=== PATIENT | female | born 1990 | race Hispanic/Latino ===

== ENCOUNTER 2016-07-10 18:00 | Emergency (ER) | payer OTHER ==
[2016-07-10 18:21] VITALS: O2SAT 99
[2016-07-10] MEDS ORDERED: HYDROcodone 7.5MG/APAP 325MG 1 EA TAB PO ONE (18:22)
[2016-07-10] MEDS ORDERED: methylPREDNISolone SODIUM SUC 125 MG/2 ML VIAL IM ONE (18:22)
[2016-07-10] MEDS ORDERED: CYCLOBENZAPRINE HCL 5 MG TAB PO ONE (18:22)
[2016-07-10] MEDS ORDERED: CYCLOBENZAPRINE HCL 10 MG TAB ONE (18:25)
--- NOTE | 2016-07-10 18:25 | ED.PDOC ---
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 The pain has just gotten progressively worse. The pain radiates to her bilateral buttocks but not down her legs. No numbness, tingling or weakness in legs. Timing/Duration: days - 4 Quality/Severity: moderate, dullness, radiation - to buttocks, sharpness Back Pain Location: lumbar spine, paraspinous muscles Back Pain Radiation: buttocks Method of Injury/Prior Injury: twisted - while lifting a patient Improving Factors: immobilization, rest Worsening Factors: movement Associated Symptoms: muscle spasms, lower back pain Allergies/Adverse Reactions: Allergies NO KNOWN ALLERGY Allergy (Verified 05/02/16 21:28) Home Medications: Ambulatory Orders Acetamin W/Cod #3 Tab [Tylenol w/CODEINE #3] 1 - 2 ea PO Q6HRS PRN #20 tab 07/10 Cyclobenzaprine HCl 5 mg PO Q8HRS PRN #15 tab 07/10/16 Review of Systems - Review of Systems Constitutional: States: no symptoms reported. Denies: diaphoresis, fever, malaise, weakness Respiratory: States: no symptoms reported Cardiology: States: no symptoms reported Gastrointestinal/Abdominal: States: no symptoms reported Genitourinary: States: no symptoms reported Musculoskeletal: States: see HPI, back pain, muscle pain, muscle stiffness Skin: States: no symptoms reported Neurological: States: other - No bowel or bladder incontinence. Denies: numbness, paresthesia, tingling, tremors, weakness Endocrine: States: no symptoms reported Hematologic/Lymphatic: States: no symptoms reported Past Medical History (General) - Patient Medical History Hx Seizures: No Hx Stroke: No Hx Dementia: No Hx Asthma: No Hx of COPD: No Hx Cardiac Disorders: No Hx Congestive Heart Failure: No Hx Pacemaker: No Hx Hypertension: No Hx Thyroid Disease: No Hx Diabetes: No Hx Gastroesophageal Reflux: No Hx Renal Disease: No Hx Cancer: No Hx of HIV: No Hx Hepatitis C: No Hx MRSA: No - Vaccination History Hx Tetanus, Diphtheria Vaccination: No Hx Influenza Vaccination: Yes Hx Pneumococcal Vaccination: No - Social History Hx Tobacco Use: No Hx Chewing Tobacco Use: No Hx Alcohol Use: No Hx Substance Use: No Hx Substance Use Treatment: No Hx Depression: No Hx Physical Abuse: No Hx Emotional Abuse: No Hx Suspected Abuse: No - Female History Patient is a Female of Child Bearing Age (10 -59 yrs old): Yes Hx Last Menstrual Period: 09/10/12 Patient : No Expected Date of Delivery:: 06/05/13 Family Medical History - Family History Mother Family History: Unknown Physical Exam - Physical Exam General Appearance: Alert, No apparent distress, Well Developed, Well Groomed, Well Hydrated, Well Nourished, Other - In obvious pain Peripheral Pulses: posterior tibialis,right: 2+, posterior tibialis,left: 2+ Back Exam: decreased range of motion, muscle spasm, vertebral tenderness Extremity Exam: no evidence of injury, normal range of motion, non-tender, no pedal edema Neurologic: no motor/sensory deficits, alert, normal mood/affect, oriented x 3, other - Negative straight leg raise Skin Exam: normal color, warm/dry Departure - Departure Clinical Impression: Lumbar strain, Muscle spasm of back Time of Disposition: 18:53 Disposition: Discharge to Home or Self Care Condition: Good Departure Forms: ED Discharge - Pt. Copy, Patient Portal Self Enrollment, Work Release Form Instructions: DI for Low Back Pain Diet: resume usual diet Activity: increase activity as tolerated Referrals: Shivani Ventura NP [Primary Care Provider] - 1-5 Days Prescriptions: Acetamin W/Cod #3 Tab [Tylenol w/CODEINE #3] 1 - 2 ea PO Q6HRS PRN #20 tab PRN Reason: Moderate To Severe Pain Cyclobenzaprine HCl 5 mg PO Q8HRS PRN #15 tab PRN Reason: Muscle Spasms Home Medications: Ambulatory Orders Acetamin W/Cod #3 Tab [Tylenol w/CODEINE #3] 1 - 2 ea PO Q6HRS PRN #20 tab 07/10 Cyclobenzaprine HCl 5 mg PO Q8HRS PRN #15 tab 07/10/16
[2016-07-10] MEDS ORDERED: ACETAMINOPHEN W/COD #3 TAB (ER Disp) PO ONE (18:57)
[2016-07-10 19:21] VITALS: BP 132/74; TEMP 98.7
== END 2016-07-10 19:16 | disposition home or self-care (01) ==
LOC: ER 18:00
DX: S39.012A Strain of muscle, fascia and tendon of lower back, initial encounter (principal); M62.830 Muscle spasm of back; X58.XXXA Exposure to other specified factors, initial encounter

== ENCOUNTER 2016-08-18 06:47 | Emergency (ER) | payer OTHER ==
[2016-08-18 07:08] VITALS: TEMP 97.8
[2016-08-18] MEDS ORDERED: ONDANSETRON INJ 4 MG/2 ML VIAL IV ONE (07:17)
[2016-08-18] MEDS ORDERED: KETOROLAC TROMETHAMINE INJ 30 MG/ML VIAL IV ONE (07:17)
[2016-08-18] MEDS ORDERED: SODIUM CHLORIDE 0.9% 1000ML 1,000 ML IVS ONE (07:17)
--- NOTE | 2016-08-18 07:26 | ED.PDOC ---
History of Present Illness - General Chief Complaint: Abdominal Pain Stated Complaint: N/V/D Time Seen by Provider: 08/18/16 07:16 Source: patient, RN notes reviewed, Vital Signs reviewed Exam Limitations: no limitations - History of Present Illness Initial Comments: Patient is a 26 y/o female who is having sharp, severe pain in her left flank x 1 day. She has had nausea and has vomited 8 times since last night. She is unable to keep anything down. The pain is worse when she is standing and when she urinates. She denies any dysuria. She has had a low-grade fever since last night. Timing/Duration: 24 hours Severity: severe Improving Factors: nothing Worsening Factors: other - standing, urinating Associated Symptoms: fever/chills, nausea/vomiting Allergies/Adverse Reactions: Allergies NO KNOWN ALLERGY Allergy (Verified 05/02/16 21:28) Home Medications: Ambulatory Orders Acetamin W/Cod #3 Tab [Tylenol w/CODEINE #3] 1 - 2 ea PO Q6HRS PRN #20 tab 07/10 Cyclobenzaprine HCl 5 mg PO Q8HRS PRN #15 tab 07/10/16 Ondansetron [Zofran Odt] 4 mg PO Q8H PRN #10 tab 08/18/16 tiZANidine [Zanaflex] 4 mg PO TID PRN #30 tab 08/18/16 Review of Systems - Review of Systems Constitutional: States: chills, fever EENTM: States: no symptoms reported Respiratory: States: no symptoms reported Cardiology: States: no symptoms reported Gastrointestinal/Abdominal: States: nausea, vomiting Genitourinary: States: no symptoms reported Musculoskeletal: States: back pain Skin: States: no symptoms reported Neurological: States: no symptoms reported Endocrine: States: no symptoms reported Hematologic/Lymphatic: States: no symptoms reported All other Systems: Reviewed and Negative Past Medical History (General) - Patient Medical History Hx Seizures: No Hx Stroke: No Hx Dementia: No Hx Asthma: No Hx of COPD: No Hx Cardiac Disorders: No Hx Congestive Heart Failure: No Hx Pacemaker: No Hx Hypertension: No Hx Thyroid Disease: No Hx Diabetes: No Hx Gastroesophageal Reflux: No Hx Renal Disease: No Hx Cancer: No Hx of HIV: No Hx Hepatitis C: No Hx MRSA: No Surgical History: other - Vaccination History Hx Tetanus, Diphtheria Vaccination: No Hx Influenza Vaccination: No Hx Pneumococcal Vaccination: No - Social History Hx Tobacco Use: No Hx Chewing Tobacco Use: No Hx Alcohol Use: No Hx Substance Use: No Hx Substance Use Treatment: No Hx Depression: No Hx Physical Abuse: No Hx Emotional Abuse: No Hx Suspected Abuse: No - Female History Hx Last Menstrual Period: 09/10/12 Patient : No Expected Date of Delivery:: 06/05/13 Family Medical History - Family History Mother Family History: Unknown Physical Exam - Physical Exam General Appearance: Alert, Obvious distress - Mild Ears, Nose, Throat: hearing grossly normal, normal ENT inspection Respiratory: lungs clear, normal breath sounds, no respiratory distress, no accessory muscle use Cardiovascular/Chest: regular rate, rhythm, no edema, no gallop, no murmur Gastrointestinal/Abdominal: normal bowel sounds, non tender, soft, no organomegaly Back Exam: normal inspection, no vertebral tenderness, CVA tenderness (L) Extremity: normal range of motion, non-tender, normal inspection, no pedal edema Neurologic: alert, normal mood/affect, oriented x 3 Skin Exam: normal color, warm/dry Progress - Results/Orders Results/Orders: 08/18/16 08/18/16 08/18/16 06:55 07:30 08:00 Temperature 97.8 F Pulse Rate [RH] 67 62 60 Respiratory 16 20 16 Rate Blood Pressure 108/67 114/70 114/70 [LEFT BRACHIAL] O2 Sat by Pulse 97 98 100 Oximetry 08/18/16 08:30 Temperature Pulse Rate [RH] 58 L Respiratory 16 Rate Blood Pressure 114/73 [LEFT BRACHIAL] O2 Sat by Pulse 100 Oximetry Laboratory Results WBC 4.5 K/mm3 (4.8-10.8) L 08/18/16 07:25 RBC 4.79 M/mm3 (4.20-5.40) 08/18/16 07:25 Hgb 11.4 gm/dL (12.0-16.0) L 08/18/16 07:25 Hct 35.7 % (36.0-47.0) L 08/18/16 07:25 MCV 74.6 fl (81.0-99.0) L 08/18/16 07:25 MCH 23.7 pg (27.0-31.0) L 08/18/16 07:25 MCHC 31.9 g/dL (33.0-37.0) L 08/18/16 07:25 RDW 16.5 % (11.5-14.5) H 08/18/16 07:25 Plt Count 175 K/mm3 (130-400) 08/18/16 07:25 MPV 9.7 fl (7.40-10.4) 08/18/16 07:25 Absolute Neuts (auto) 2.30 K/uL (1.8-6.8) 08/18/16 07:25 Absolute Lymphs (auto) 1.50 K/uL (1.0-3.4) 08/18/16 07:25 Absolute Monos (auto) 0.40 K/uL (0.2-0.8) 08/18/16 07:25 Absolute Eos (auto) 0.20 K/uL (0.0-0.4) 08/18/16 07:25 Absolute Basos (auto) 0.00 K/uL (0.0-0.1) 08/18/16 07:25 Neutrophils % 51.5 % (42.0-78.0) 08/18/16 07:25 Lymphocytes % 34.0 % (20.0-50.0) 08/18/16 07:25 Monocytes % 9.7 % (2.0-9.0) H 08/18/16 07:25 Eosinophils % 4.0 % (1.0-5.0) 08/18/16 07:25 Basophils % 0.8 % (0.0-2.0) 08/18/16 07:25 Sodium 140 mmol/L (135-145) 08/18/16 07:25 Potassium 3.7 mmol/L (3.6-5.0) 08/18/16 07:25 Chloride 107 mmol/L (101-111) 08/18/16 07:25 Carbon Dioxide 27 mmol/L (21-31) 08/18/16 07:25 Anion Gap 9.7 (12-18) L 08/18/16 07:25 BUN 16 mg/dL (7-18) 08/18/16 07:25 Creatinine 0.58 mg/dL (0.6-1.3) L 08/18/16 07:25 BUN/Creatinine Ratio 27.6 (10-20) H 08/18/16 07:25 Random Glucose 107 mg/dL (70-105) H 08/18/16 07:25 Serum Osmolality 281.1 mOsm/L (275-295) 08/18/16 07:25 Calcium 8.8 mg/dL (8.4-10.2) 08/18/16 07:25 Total Bilirubin 0.6 mg/dL (0.2-1.0) 08/18/16 07:25 AST 18 IU/L (10-42) 08/18/16 07:25 ALT 15 IU/L (10-60) 08/18/16 07:25 Alkaline Phosphatase 52 IU/L (42-121) 08/18/16 07:25 Serum Total Protein 7.7 gm/dL (6.4-8.2) 08/18/16 07:25 Albumin 4.1 g/dl (3.2-5.5) 08/18/16 07:25 Globulin 3.6 gm/dL (2.3-3.5) H 08/18/16 07:25 Albumin/Globulin Ratio 1.1 (1.1-1.9) 08/18/16 07:25 Urine Color Yellow (Yellow) 08/18/16 07:10 Urine Appearance Clear (Clear) 08/18/16 07:10 Urine pH 6.0 (4.5-7.8) 08/18/16 07:10 Ur Specific [place] 1.025 (1.005-1.030) 08/18/16 07:10 Urine Protein Negative mg/dL 08/18/16 07:10 Urine Glucose (UA) Negative mg/dL (Negative) 08/18/16 07:10 Urine Ketones Trace mg/dL (NEGATIVE) 08/18/16 07:10 Urine Blood Negative (Negative) 08/18/16 07:10 Urine Nitrite Negative 08/18/16 07:10 Urine Bilirubin Negative (NEGATIVE) 08/18/16 07:10 Urine Urobilinogen 0.2 mg/dL (0.2-1.0) 08/18/16 07:10 Ur Leukocyte Esterase Trace (Negative) H 08/18/16 07:10 Urine RBC 0 /hpf 08/18/16 07:10 Urine WBC 1-3 /hpf 08/18/16 07:10 Ur Epithelial Cells 5-10 /hpf 08/18/16 07:10 Urine Bacteria Rare 08/18/16 07:10 - EKG/XRAY/CT CT: abd/pelv - normal CT Ordered: Yes CT Interpretation Call Back: No - Report sent Departure - Departure Clinical Impression: Gastroenteritis, Flank pain Time of Disposition: 09:41 Disposition: Discharge to Home or Self Care Condition: Fair Departure Forms: ED Discharge - Pt. Copy, Patient Portal Self Enrollment Instructions: Gastroenteritis Diet Diet: bland diet Referrals: Shivani Ventura NP [Primary Care Provider] - 1-2 Weeks Prescriptions: tiZANidine [Zanaflex] 4 mg PO TID PRN #30 tab PRN Reason: Muscle Spasms Ondansetron [Zofran Odt] 4 mg PO Q8H PRN #10 tab PRN Reason: Nausea/Vomiting Home Medications: Ambulatory Orders Acetamin W/Cod #3 Tab [Tylenol w/CODEINE #3] 1 - 2 ea PO Q6HRS PRN #20 tab 07/10 Cyclobenzaprine HCl 5 mg PO Q8HRS PRN #15 tab 07/10/16 Ondansetron [Zofran Odt] 4 mg PO Q8H PRN #10 tab 08/18/16 tiZANidine [Zanaflex] 4 mg PO TID PRN #30 tab 08/18/16
[2016-08-18 09:56] VITALS: BP 117/75
[2016-08-18 09:57] VITALS: O2SAT 100
--- NOTE | 2016-08-20 01:06 | CT ---
EXAM DESCRIPTION: Abdoment/Pelvis w/o Contrast CLINICAL HISTORY: Left lateral abdominal pain COMPARISON: October 18, 2013 TECHNIQUE: Contiguous axial images of the abdomen and pelvis were obtained followed by reconstruction images. FINDINGS: The liver, spleen, pancreas and kidneys are within normal limits, except for nonobstructive stones within the left kidney. There is no hydronephrosis. Patient is status post cholecystectomy. Adrenal glands are within normal limits. Aorta is of normal caliber and tapering. There is no free fluid in the abdomen or pelvis. There is no bowel obstruction. There is no stranding of the mesenteric fat to suggest an inflammatory response. The appendix is within normal limits. There is no pericecal inflammation. 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
== END 2016-08-18 09:52 | disposition home or self-care (01) ==
LOC: ER 06:47
DX: K52.9 Noninfective gastroenteritis and colitis, unspecified (principal)
CPT/HCPCS: 36415; 74176; 80053; 81001; 85025; J1885; J2405; J7030

== ENCOUNTER 2016-10-26 20:28 | Emergency (ER) | payer OTHER ==
[2016-10-26 20:42] VITALS: BP 130/81; TEMP 98.2; O2SAT 98
--- NOTE | 2016-10-26 20:47 | ED.PDOC ---
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 She last had sex 2 days ago, however it did not hurt and the swelling only started this morning. She has a whitish discharge as well, and some dysuria. Timing/Duration: this morning Quality: mild, aching Onset Location: vaginal Radiation: none Activites at Onset: none Sexual intercourse history: single partner Allergies/Adverse Reactions: Allergies NO KNOWN ALLERGY Allergy (Verified 05/02/16 21:28) Home Medications: Ambulatory Orders Sulfamethoxazole-Trimethoprim [Bactrim Ds 800-160 mg] 1 tab PO BID #14 tab 10/26 metroNIDAZOLE [Flagyl] 500 mg PO BID #14 tab 10/26/16 Review of Systems - Review of Systems Constitutional: States: no symptoms reported EENTM: States: no symptoms reported Respiratory: States: no symptoms reported Cardiology: States: no symptoms reported Gastrointestinal/Abdominal: States: no symptoms reported Genitourinary: States: discharge, dysuria, frequency, pain Musculoskeletal: States: no symptoms reported Skin: States: no symptoms reported Neurological: States: no symptoms reported Endocrine: States: no symptoms reported Hematologic/Lymphatic: States: no symptoms reported All other Systems: Reviewed and Negative Past Medical History (General) - Patient Medical History Hx Seizures: No Hx Stroke: No Hx Dementia: No Hx Asthma: No Hx of COPD: No Hx Cardiac Disorders: No Hx Congestive Heart Failure: No Hx Pacemaker: No Hx Hypertension: No Hx Thyroid Disease: No Hx Diabetes: No Hx Gastroesophageal Reflux: No Hx Renal Disease: No Hx Cancer: No Hx of HIV: No Hx Hepatitis C: No Hx MRSA: No Surgical History: no surgical history - Vaccination History Hx Tetanus, Diphtheria Vaccination: No Hx Influenza Vaccination: No Hx Pneumococcal Vaccination: No - Social History Hx Tobacco Use: No Hx Chewing Tobacco Use: No Hx Alcohol Use: No Hx Substance Use: No Hx Substance Use Treatment: No Hx Depression: No Feels Threatened In Home Enviroment: No Feels Threatened In a Relationship: No Hx Physical Abuse: No Hx Emotional Abuse: No Hx Suspected Abuse: No - Female History Patient is a Female of Child Bearing Age (10 -59 yrs old): Yes Hx Last Menstrual Period: 10/06/16 Patient : No Expected Date of Delivery:: 06/05/13 Family Medical History - Family History Mother Family History: Unknown Physical Exam - Physical Exam General Appearance: Alert, Comfortable, No apparent distress Eyes, Ears, Nose, Throat Exam: normal ENT inspection Cardiovascular/Respiratory: no respiratory distress Gastrointestinal/Abdominal: non tender, soft, no organomegaly Rectal Exam: normal exam Pelvic Exam: no cerv. motion tender, no masses, discharge - white, fluid, lesions - small lesion on external left vulva (from stratching), tender adnexa - very mildly tender left adnexa, other - No CMT, no uterine tenderness, cervix slightly friable anteriorly Back Exam: no CVA tenderness Extremity: normal range of motion, non-tender, normal inspection, no pedal edema Neurologic: alert, normal mood/affect, oriented x 3 Skin Exam: normal color, warm/dry Lymphatic: no adenopathy Progress - Results/Orders Results/Orders: 10/26/16 20:35 Temperature 98.2 F Pulse Rate [ 76 left arm] Respiratory 18 Rate Blood Pressure 130/81 [Left Arm] O2 Sat by Pulse 98 Oximetry 10/26/16 20:45 URINE CULTURE W/COLONY COUNT Stat 10/26/16 20:55 GC CHLAMYDIA RNA,TMA Stat 10/26/16 20:59 GC CHLAMYDIA RNA,TMA Stat Laboratory Results Urine Color Yellow (Yellow) 10/26/16 20:45 Urine Appearance Clear (Clear) 10/26/16 20:45 Urine pH 5.5 (4.5-7.8) 10/26/16 20:45 Ur Specific [place] >= 1.030 (1.005-1.030) 10/26/16 20:45 Urine Protein Negative mg/dL 10/26/16 20:45 Urine Glucose (UA) Negative mg/dL (Negative) 10/26/16 20:45 Urine Ketones Negative mg/dL (NEGATIVE) 10/26/16 20:45 Urine Blood Trace-intact (Negative) H 10/26/16 20:45 Urine Nitrite Negative 10/26/16 20:45 Urine Bilirubin Negative (NEGATIVE) 10/26/16 20:45 Urine Urobilinogen 0.2 mg/dL (0.2-1.0) 10/26/16 20:45 Ur Leukocyte Esterase Small (Negative) H 10/26/16 20:45 Urine RBC 1-3 /hpf 10/26/16 20:45 Urine WBC 5-10 /hpf H 10/26/16 20:45 Ur Epithelial Cells 1-3 /hpf 10/26/16 20:45 Urine Bacteria Rare 10/26/16 20:45 Urine HCG, Qual Negative 10/26/16 20:45 Wet mount: few yeast, no clue cells, + trichamonas Departure - Departure Clinical Impression: Trichomoniasis, urogenital Urinary tract infection Qualifiers: Urinary tract infection type: site unspecified Time of Disposition: 21:41 Disposition: Discharge to Home or Self Care Condition: Fair Departure Forms: ED Discharge - Pt. Copy, Patient Portal Self Enrollment Instructions: DI for Trichomoniasis, Trichomoniasis, Urinary Tract Infection, DI for Urinary Tract Infection (UTI) Diet: resume usual diet Referrals: Shivani Ventura NP [Primary Care Provider] - 1-2 Weeks Prescriptions: metroNIDAZOLE [Flagyl] 500 mg PO BID #14 tab Sulfamethoxazole-Trimethoprim [Bactrim Ds 800-160 mg] 1 tab PO BID #14 tab Home Medications: Ambulatory Orders Sulfamethoxazole-Trimethoprim [Bactrim Ds 800-160 mg] 1 tab PO BID #14 tab 10/26 metroNIDAZOLE [Flagyl] 500 mg PO BID #14 tab 10/26/16 Additional Instructions: No sex until both partners have been treated for 7 days. Follow up with PCP in 3 months for recheck. Follow up in ED for any worsening of symptoms.
[2016-10-26] MEDS ORDERED: metroNIDAZOLE 500 MG TAB PO ONE (21:43)
[2016-10-26] MEDS ORDERED: SULFA/TRIMETH 800/160 (DS) TAB 1 EA TAB PO ONE (21:44)
== END 2016-10-26 22:01 | disposition home or self-care (01) ==
LOC: ER 20:28
DX: A59.00 Urogenital trichomoniasis, unspecified (principal)

== ENCOUNTER 2017-03-12 06:17 | Emergency (ER) | payer OTHER ==
[2017-03-12 06:32] VITALS: TEMP 97.5
[2017-03-12] MEDS ORDERED: LIDOCAINE VIS-MYLANTA 30 ML UD PO ONE (06:43)
--- NOTE | 2017-03-12 06:47 | ED.PDOC ---
History of Present Illness - General Information Source: patient, RN notes reviewed, Vital Signs reviewed Exam Limitations: no limitations - History of Present Illness Initial Comments: Patient comes in to ER with c/o epigastric abdominal pain that started last night. The pain goes through to her back. Describes the pain as pressure or tightness. + nausea and SOB. Denies similar episodes in the past. She took a Tylenol #3 w/o improvement in her pain. The pain has been constant and kept her from being able to sleep. Abdominal Pain Onset Location: epigastric Pain Radiation: back Quality: severe, steady - pressure/tightness Timing/Duration: 7-24 hours, constant Improving Factors: nothing Worsening Factors: nothing Associated Symptoms: back pain, nausea/vomiting, shortness of breath <Paloma Valadez - Last Filed: 03/12/17 06:59> <Pamela Clay - Last Filed: 03/12/17 08:28> - General Chief Complaint: Abdominal Pain Stated Complaint: epigastric pain Time Seen by Provider: 03/12/17 06:39 Review of Systems - Review of Systems Constitutional: States: no symptoms reported. Denies: chills, diaphoresis, fever, malaise EENTM: States: no symptoms reported Respiratory: States: short of breath. Denies: cough Cardiology: States: no symptoms reported. Denies: chest pain, palpitations, syncope Gastrointestinal/Abdominal: States: see HPI, abdominal pain, nausea. Denies: diarrhea, vomiting Musculoskeletal: States: see HPI, back pain Skin: States: no symptoms reported Neurological: States: no symptoms reported All other Systems: No Change from Baseline <Paloma Valadez - Last Filed: 03/12/17 06:59> Past Medical History (General) - Patient Medical History Hx Seizures: No Hx Stroke: No Hx Dementia: No Hx Asthma: No Hx of COPD: No Hx Cardiac Disorders: No Hx Congestive Heart Failure: No Hx Pacemaker: No Hx Hypertension: No Hx Thyroid Disease: No Hx Diabetes: No Hx Gastroesophageal Reflux: No Hx Renal Disease: No Hx Cancer: No Hx of HIV: No Hx Hepatitis C: No Hx MRSA: No Surgical History: cholecystectomy - Vaccination History Hx Tetanus, Diphtheria Vaccination: No Hx Influenza Vaccination: Yes Hx Pneumococcal Vaccination: No - Social History Hx Tobacco Use: No Hx Chewing Tobacco Use: No Hx Alcohol Use: No Hx Substance Use: No Hx Substance Use Treatment: No Hx Depression: No Hx Physical Abuse: No Hx Emotional Abuse: No Hx Suspected Abuse: No - Female History Patient is a Female of Child Bearing Age (10 -59 yrs old): Yes Hx Last Menstrual Period: 10/06/16 Patient : No Expected Date of Delivery:: 06/05/13 <AnthonymaynorPaloma - Last Filed: 03/12/17 06:59> Family Medical History - Family History Mother Family History: Unknown <AnthonymaynorPaloma - Last Filed: 03/12/17 06:59> Physical Exam - Physical Exam General Appearance: Alert, No apparent distress, Well Developed, Well Groomed, Well Hydrated, Well Nourished, Other - appears to be in pain Neck: supple, normal inspection Respiratory: lungs clear, normal breath sounds, no respiratory distress, no accessory muscle use Cardiovascular/Chest: regular rate, rhythm, no gallop, no JVD, no murmur Gastrointestinal/Abdominal: normal bowel sounds, soft, no organomegaly, no pulsatile mass, tenderness - epigastric tenderness w/o guarding or rebound Back Exam: normal inspection Extremity: normal inspection Neurologic: alert, normal mood/affect, oriented x 3 Skin Exam: normal color, warm/dry Comments: Vital Signs 03/12/17 06:29 Temperature 97.5 F L Pulse Rate [ 68 Right] Respiratory 16 Rate Blood Pressure 129/61 [Right Arm] O2 Sat by Pulse 99 Oximetry <RoryPaloma - Last Filed: 03/12/17 06:59> Progress - Progress Progress: 03/12/17 06:59 Patient reports some improvement with GI cocktail. Pain went from 8/10 to 6/[address] Clay @ 0700 - EKG/XRAY/CT EKG: Otilio, Sinus, no ST T wave changes Comments: Rate 59 <AnthonymaynorPaloma - Last Filed: 03/12/17 06:59> - Progress Progress: 03/12/17 07:30 PT REPORTS ONLY MINIMAL IMPROVEMENT IN PAIN AFTER GI SLIDER STILL RATING IT 6/ 10. PT CONTINUES TO HAVE NAUSEA. TORADOL, MORPHINE, ZOFRAN ORDERED. 03/12/17 08:26 PT CONTINUES TO HAVE PAIN AFTER IV PAIN MEDS. ARRANGEMENTS MADE TO TRANSFER TO [facility] FOR MRCP AND GI CONSULTATION. <Pamela Clay H - Last Filed: 03/12/17 08:28> Departure <Paloma Valadez - Last Filed: 03/12/17 06:59> - Departure Time of Disposition: 08:28 <Pamela Clay - Last Filed: 03/12/17 08:28> - Departure Clinical Impression: Elevated LFTs, Hyperbilirubinemia, Epigastric abdominal pain, Nausea and vomiting Disposition: Transfer to Hospital Condition: Fair Departure Forms: ED Discharge - Pt. Copy, Patient Portal Self Enrollment Instructions: DI for Abdominal Pain-Adult Referrals: Catalina Gottlieb BATH STEWARD/STEWARDESS [Primary Care Provider] - 1-2 Weeks Home Medications: Ambulatory Orders NK [NK] 03/12/17 Transfer to Outside Facility - Transfer Information Accepting Provider:: DR. KING Accepting Facility: [facility] Reason for Transfer: required specialist not available - WAITER/WAITRESS FORMAL <Pamela Clay - Last Filed: 03/12/17 08:28>
[2017-03-12] MEDS ORDERED: KETOROLAC TROMETHAMINE INJ 30 MG/ML VIAL IV ONE (07:18)
[2017-03-12] MEDS ORDERED: MORPHINE SULFATE INJ 10 MG/ML VIAL IV ONE (07:28)
[2017-03-12] MEDS ORDERED: ONDANSETRON INJ 4 MG/2 ML VIAL IV ONE (07:29)
[2017-03-12 09:01] VITALS: BP 125/71; O2SAT 99
== END 2017-03-12 09:21 | disposition short-term general hospital (02) ==
LOC: ER 06:17
DX: R10.13 Epigastric pain (principal); R11.2 Nausea with vomiting, unspecified; E80.6 Other disorders of bilirubin metabolism; R79.89 Other specified abnormal findings of blood chemistry
CPT/HCPCS: 36415; 80053; 82150; 83690; 85025; 93005; J1885; J2270; J2405

== ENCOUNTER 2017-07-03 01:58 | Emergency (ER) | payer SELFPAY ==
[2017-07-03] MEDS ORDERED: ALUM & MAG HYDROX-SIMETHICONE 30 ML, LIDOCAINE VISCOUS 2% 15 ML PO ONE ×2 (02:30)
[2017-07-03] MEDS ORDERED: LIDOCAINE HCL 2% (MOUTH-THROAT) 15 ML UD ONE (02:33)
[2017-07-03] MEDS ORDERED: ALUM & MAG HYDROX-SIMETHICONE 30 ML UD ONE (02:33)
--- NOTE | 2017-07-03 02:33 | ED.PDOC ---
History of Present Illness - General Chief Complaint: Chest Pain/NM Stated Complaint: chest pain Time Seen by Provider: 07/03/17 02:24 Source: patient Exam Limitations: no limitations - History of Present Illness Timing/Duration: 1-3 hours Severity/Quality: dull, pressure Location: central, other - L chest Chest Pain Radiation: no radiation Activities at Onset: none Prior Chest Pain/Cardiac Workup: non-cardiac Improving Factors: nothing Worsening Factors: other - deep breathing Nitro Today/Relief: no nitro taken today Aspirin Treatment Today: no aspirin today Associated Symptoms: shortness of breath Allergies/Adverse Reactions: Allergies NO KNOWN ALLERGY Allergy (Verified 05/02/16 21:28) Home Medications: Ambulatory Orders Pantoprazole Tablet [Protonix] 40 mg PO ACBK 14 Days #14 tab 07/03/17 Review of Systems - Review of Systems Constitutional: Denies: diaphoresis, fever EENTM: States: no symptoms reported Respiratory: States: short of breath. Denies: cough, orthopnea Cardiology: States: chest pain Gastrointestinal/Abdominal: States: nausea. Denies: abdominal pain, diarrhea, vomiting Genitourinary: Denies: dysuria, frequency Musculoskeletal: Denies: no symptoms reported Neurological: States: anxiety, numbness. Denies: paresthesia, tingling Endocrine: Denies: increased thirst, increased urine Hematologic/Lymphatic: Denies: swollen glands Past Medical History (General) - Patient Medical History Hx Seizures: No Hx Stroke: No Hx Dementia: No Hx Asthma: No Hx of COPD: No Hx Cardiac Disorders: No Hx Congestive Heart Failure: No Hx Pacemaker: No Hx Hypertension: No Hx Thyroid Disease: No Hx Diabetes: No Hx Gastroesophageal Reflux: No Hx Renal Disease: No Hx Cancer: No Hx of HIV: No Hx Hepatitis C: No Hx MRSA: No Surgical History: cholecystectomy - Vaccination History Hx Tetanus, Diphtheria Vaccination: No Hx Influenza Vaccination: Yes Hx Pneumococcal Vaccination: No - Social History Hx Tobacco Use: No Hx Chewing Tobacco Use: No Hx Alcohol Use: No Hx Substance Use: No Hx Substance Use Treatment: No Hx Depression: No Hx Physical Abuse: No Hx Emotional Abuse: No Hx Suspected Abuse: No - Female History Patient is a Female of Child Bearing Age (10 -59 yrs old): Yes Hx Last Menstrual Period: 10/06/16 Patient : No Expected Date of Delivery:: 12/13/13 Family Medical History - Family History Mother Family History: Unknown Physical Exam - Physical Exam General Appearance: Alert, Anxious Eyes, Ears, Nose, Throat Exam: PERRL/EOMI, normal ENT inspection, TMs normal Neck: full range of motion, supple, normal inspection Respiratory: chest non-tender, lungs clear, normal breath sounds, no respiratory distress Cardiovascular/Chest: normal peripheral pulses, regular rate, rhythm, no edema Peripheral Pulses: radial,right: 2+ Gastrointestinal/Abdominal: normal bowel sounds, non tender, soft, no organomegaly Extremity: normal range of motion, non-tender, normal inspection Neurologic: customer assistant II-XII nml as tested, alert, oriented x 3 Skin Exam: normal color, warm/dry Lymphatic: no adenopathy Progress - Progress Progress: 07/03/17 03:22 Feels better after GI slider - EKG/XRAY/CT EKG: Sinus, no ST T wave changes Comments: rate 88, PA 154, QRS 82 Departure - Departure Clinical Impression: Gastroesophageal reflux disease Chest pain Qualifiers: Chest pain type: precordial pain Qualified Code(s): R07.2 - Precordial pain Disposition: Discharge to Home or Self Care Condition: Fair Departure Forms: ED Discharge - Pt. Copy, Patient Portal Self Enrollment Instructions: DI for Chest Pain Referrals: Catalina Gottlieb NP [Primary Care Provider] - 1-2 Weeks Prescriptions: Pantoprazole Tablet [Protonix] 40 mg PO ACBK 14 Days #14 tab Home Medications: Ambulatory Orders Pantoprazole Tablet [Protonix] 40 mg PO ACBK 14 Days #14 tab 07/03/17
[2017-07-03 02:40] VITALS: TEMP 99.4; O2SAT 100
--- NOTE | 2017-07-03 02:57 | RAD ---
EXAM DESCRIPTION: Chest,1 View CLINICAL HISTORY: chest pain COMPARISON: 11/01/2015 FINDINGS: Single frontal view of the chest. The cardiomediastinal silhouette has normal size and contour. No consolidation, pneumothorax, or pleural effusion. No displaced rib fractures identified. Prior cholecystectomy. Leads overlie the chest. IMPRESSION: 1. No acute pulmonary process identified. Electronically signed by: Tomás Gimenez 07/03/2017 2:56 AM [facility]
[2017-07-03 03:29] VITALS: BP 148/70
== END 2017-07-03 03:29 | disposition home or self-care (01) ==
LOC: ER 01:58
DX: K21.9 Gastro-esophageal reflux disease without esophagitis (principal); R07.2 Precordial pain

== ENCOUNTER 2017-07-11 08:24 | Observation (INO) | payer SELFPAY ==
[2017-07-11] MEDS ORDERED: SODIUM CHLORIDE 0.9% (FLUSH) 10 ML SYG IV PRN ×2 (08:44→14:21)
[2017-07-11] MEDS ORDERED: ONDANSETRON INJ 4 MG/2 ML VIAL IV ONE (08:44)
[2017-07-11] MEDS ORDERED: KETOROLAC TROMETHAMINE INJ 30 MG/ML VIAL IV ONE (08:44)
[2017-07-11] MEDS ORDERED: MORPHINE SULFATE INJ 10 MG/ML VIAL IV ONE ×3 (08:45→12:05)
--- NOTE | 2017-07-11 08:54 | ED.PDOC ---
History of Present Illness - General Chief Complaint: Abdominal Pain Stated Complaint: abdominal pain Time Seen by Provider: 07/11/17 08:44 Source: patient Exam Limitations: no limitations - History of Present Illness Initial Comments: PT REPORTS ONSET OF EPIGASTRIC ABDOMINAL PAIN ABOUT 3 HOURS AGO. PT REPORTS THAT PAIN RADIATES TO THE BACK AND IS ASSOCIATED WITH NAUSEA. PT REPORTS SIMILAR EPISODE IN SEPT IN WHICH PT WAS FOUND TO HAVE AN INFECTION OF THE LIVER. Timing/Duration: 1-3 hours Severity: severe Improving Factors: nothing Worsening Factors: nothing Associated Symptoms: chest pain, nausea/vomiting, shortness of breath Allergies/Adverse Reactions: Allergies NO KNOWN ALLERGY Allergy (Verified 05/02/16 21:28) Home Medications: Ambulatory Orders Pantoprazole Tablet [Protonix] 40 mg PO ACBK 14 Days #14 tab 07/03/17 Review of Systems - Review of Systems Constitutional: Denies: chills, fever EENTM: Denies: ear pain, nose congestion Respiratory: States: short of breath. Denies: cough Cardiology: States: see HPI, chest pain. Denies: palpitations, syncope Gastrointestinal/Abdominal: States: nausea. Denies: diarrhea, vomiting Genitourinary: Denies: dysuria, frequency Musculoskeletal: Denies: joint pain, joint swelling Skin: Denies: dryness, lesions Neurological: Denies: headache, numbness Endocrine: States: no symptoms reported Hematologic/Lymphatic: States: no symptoms reported Past Medical History (General) - Patient Medical History Hx Seizures: No Hx Stroke: No Hx Dementia: No Hx Asthma: No Hx of COPD: No Hx Cardiac Disorders: No Hx Congestive Heart Failure: No Hx Pacemaker: No Hx Hypertension: No Hx Thyroid Disease: No Hx Diabetes: No Hx Gastroesophageal Reflux: No Hx Renal Disease: No Hx Cancer: No Hx of HIV: No Hx Hepatitis C: No Hx MRSA: No Surgical History: cholecystectomy, other - Vaccination History Hx Tetanus, Diphtheria Vaccination: No Hx Influenza Vaccination: Yes Hx Pneumococcal Vaccination: No - Social History Hx Tobacco Use: No Hx Chewing Tobacco Use: No Hx Alcohol Use: No Hx Substance Use: No Hx Substance Use Treatment: No Hx Depression: No Hx Physical Abuse: No Hx Emotional Abuse: No Hx Suspected Abuse: No - Female History Hx Last Menstrual Period: 10/06/16 Patient : No Expected Date of Delivery:: 06/05/13 Family Medical History - Family History Mother Family History: Unknown Physical Exam - Physical Exam General Appearance: Alert, Obvious distress, Well Developed, Well Groomed, Well Hydrated Eye Exam: bilateral normal Ears, Nose, Throat: hearing grossly normal Neck: normal inspection Respiratory: lungs clear, normal breath sounds, no respiratory distress Cardiovascular/Chest: regular rate, rhythm, no murmur Gastrointestinal/Abdominal: soft, no organomegaly, no pulsatile mass, tenderness - TO THE EPIGASTRIC REGION Extremity: normal inspection Neurologic: alert, normal mood/affect, oriented x 3 Skin Exam: normal color, warm/dry Progress - Progress Progress: 07/11/17 09:20 PT REPORTS NO IMPROVEMENT IN PAIN AFTER IV TORADOL AND MORPHINE. GI SLIDER ORDERED. 07/11/17 09:49 PT REPORTS NO IMPROVEMENT IN PAIN AFTER GI SLIDER. ADDITIONAL MORPHINE ORDERED. - Results/Orders Results/Orders: Laboratory Tests 07/11/17 07/11/17 07/11/17 08:53 08:53 08:53 WBC 5.7 RBC 4.89 Hgb 10.9 L Hct 34.1 L MCV 69.8 L MCH 22.2 L MCHC 31.9 L RDW 16.4 H Plt Count 219 MPV 9.6 Absolute Neuts (auto) 2.20 Absolute Lymphs (auto) 2.70 Absolute Monos (auto) 0.50 Absolute Eos (auto) 0.30 Absolute Basos (auto) 0.10 Neutrophils % 38.4 L Lymphocytes % 46.5 Monocytes % 8.5 Eosinophils % 5.2 H Basophils % 1.4 Sodium 137 Potassium 3.5 L Chloride 102 Carbon Dioxide 26 Anion Gap 12.5 BUN 10 Creatinine 0.52 L BUN/Creatinine Ratio 19.2 Random Glucose 101 Serum Osmolality 273.0 L Calcium 9.4 Total Bilirubin 0.4 Direct Bilirubin < 0.1 Indirect Bilirubin 0.3 AST 20 ALT 14 Alkaline Phosphatase 60 Serum Total Protein 7.6 Albumin 4.3 Lipase 80 H Serum HCG, Qual 07/11/17 08:53 WBC RBC Hgb Hct MCV MCH MCHC RDW Plt Count MPV Absolute Neuts (auto) Absolute Lymphs (auto) Absolute Monos (auto) Absolute Eos (auto) Absolute Basos (auto) Neutrophils % Lymphocytes % Monocytes % Eosinophils % Basophils % Sodium Potassium Chloride Carbon Dioxide Anion Gap BUN Creatinine BUN/Creatinine Ratio Random Glucose Serum Osmolality Calcium Total Bilirubin Direct Bilirubin Indirect Bilirubin AST ALT Alkaline Phosphatase Serum Total Protein Albumin Lipase Serum HCG, Qual Negative - EKG/XRAY/CT EKG: Otilio - @53BPM, WITH SINUS ARRHYTHMIA, NL INTERVALS, NL AXIS, Sinus, no ST T wave changes, Unchanged from - 07/03/17 Departure - Departure Clinical Impression: Pancreatitis Qualifiers: Chronicity: acute Pancreatitis type: other Acute pancreatitis complication: unspecified Qualified Code(s): K85.80 - Other acute pancreatitis without necrosis or infection Time of Disposition: 09:53 Disposition: Admit Patient Condition: Fair Departure Forms: ED Discharge - Pt. Copy, Patient Portal Self Enrollment Instructions: DI for Abdominal Pain-Adult Referrals: Catalina Gottlieb, QUALIFICATION ENGINEER [Primary Care Provider] - 1-2 Weeks Home Medications: Ambulatory Orders Pantoprazole Tablet [Protonix] 40 mg PO ACBK 14 Days #14 tab 07/03/17 Decision To Admit - Decistion To Admit Decision to Admit Reason: Admit from ER Decision to Admit Date: 07/11/17 - CASE DISCUSSED WITH DINA FAJARDO WHO AGREES TO ADMIT Decision to Admit Time: 09:53
[2017-07-11] MEDS ORDERED: ALUM & MAG HYDROX-SIMETHICONE 30 ML, LIDOCAINE VISCOUS 2% 15 ML PO ONE ×2 (09:25)
[2017-07-11] MEDS ORDERED: ALUM & MAG HYDROX-SIMETHICONE 30 ML UD ONE (09:27)
[2017-07-11] MEDS ORDERED: LIDOCAINE HCL 2% (MOUTH-THROAT) 15 ML UD ONE (09:27)
[2017-07-11] MEDS ORDERED: SODIUM CHLORIDE 0.9% 1000ML 1,000 ML IVS ONE (10:01)
--- NOTE | 2017-07-11 10:51 | CT ---
EXAM DESCRIPTION: Abdomen/Pelvis w/Contrast: CT. CLINICAL HISTORY: EPIGASTRIC ABDOMINAL PAIN, PANCREATITIS COMPARISON: None. TECHNIQUE: Spiral-axial scans at 5.0 mm intervals through the abdomen and pelvis, after nonionic IV contrast. No oral contrast. Coronal and sagittal 2.0 mm reconstructions. No adverse reactions. Total Exam DLP: 494.51 mGy-cm. This exam was performed according to our departmental dose-optimization program which includes automated exposure control, adjustment of the mA and/or kV according to patient size and/or use of iterative reconstruction technique; to reduce radiation dose to as low as reasonably achievable (ALARA). FINDINGS: Lung bases and pleura: Negative. Liver, Stomach, Spleen, Adrenal Glands: Mild intrahepatic biliary dilatation. No focal liver lesions. Craniocaudal dimension of the right lobe 18 cm. Stomach and other solid organs are negative. Pancreas, Gallbladder, Ducts: Surgical clips in the gallbladder fossa with no fluid. Interval dilation common bile duct. Pancreas unremarkable. Kidneys and Ureters: 5.7 mm radiodense stone in the superior collecting system of the left kidney and a 2.3 mm stone in the inferior collecting system. No hydronephrosis or perinephric fluid. Right kidney is unremarkable. No radiodense stones or hydroureter bilaterally. Pelvic Organs: No radiodense stones in the urinary bladder. Uterus normal position endometrium 1.7 cm. Bilateral ovaries abutting the uterus. No fluid in the cul-de-sac. Air in the vagina. Mesentery: No free air or free fluid. No stranding or fascial thickening. Aorta: Unremarkable. Small Bowel: Gas and fluid in the small bowel normal caliber. Terminal Ileum/Cecum: Radiodense material in the TI which is normal caliber and also in the cecum which is minimally distended with gas and fecal matter. Normal caliber of the appendix containing gas. Normal density of the surrounding fat. Colon: Fecal matter mostly proximal. Gas and fecal material in the sigmoid colon which is markedly redundant extending into the anterior mid abdomen. No complications. Spine and Bony Pelvis: Unremarkable. Abdominal Wall/Back Soft Tissues: Negative. IMPRESSION: 1. 2 radiodense stones in the left renal collecting system but no hydronephrosis. 5.7 mm stone in the upper collecting system which is at risk to enter the left ureter due to gravity. Consider urology consult. Bilateral ureters and right kidney unremarkable. 2. No bowel obstruction or mucosal thickening. No free air or free fluid. 3. Borderline hepatomegaly with normal size of the spleen. No fluid in the gallbladder fossa. Dilation of intrahepatic and extra hepatic ducts is unremarkable in light of cholecystectomy. 4. Uterus and ovaries in normal position. No fluid in the cul-de-sac. Electronically signed by: Cj Rosenthal MD 07/11/2017 10:50 AM [facility]
--- NOTE | 2017-07-11 11:34 | HP ---
SUPERVISING PHYSICIAN: Corby Mcintosh M.D. CHIEF COMPLAINT: Epigastric abdominal pain. HISTORY OF PRESENT ILLNESS: This is a 27 year-old female patient who woke up this morning with reports of severe epigastric abdominal pain. Sometimes the pain radiated to the left and sometimes it radiated to the right around to the back. After the abdominal pain did not subside she came to the Emergency Room. She also had some nausea but she vomited times 4 in the Emergency Room. In February of last year she had very similar symptoms and she was sent to [facility] with a liver infection. She also had it several years ago after the of her fourth child and she had her gallbladder taken out. In the Emergency Room, her CBC was basically within normal limits except her hemoglobin except her hemoglobin was slightly low at 10.9 and hematocrit 34.1. Sodium 137 with potassium 3.5, chloride 102, carbon dioxide 28, BUN 10, creatinine 0.52. Liver enzymes were basically within normal limits. Lipase was slightly elevated at 80. She had a negative urinalysis. CT of the abdomen and pelvis per radiology interpretation showed: 1. Two radiodense stones in the left renal collecting system but no hydronephrosis, 5.7 mm stone in the upper collecting system which is at risk to enter the left ureter due to gravity. Consider Urology consult, bilateral ureters and right kidney are unremarkable. 2. No bowel obstruction or mucosal thickening. No free air or free fluid. 3. Borderline hepatomegaly with size of the spleen. No fluid in the gallbladder fossa. Dilation of intrahepatic and extrahepatic ducts is unremarkable in light of cholecystectomy. 4. Uterus and ovaries in normal position. No fluid in the cul-de-sac. I called Dr. Rosenthal, radiologist, and specifically asked if there were any problems with the pancreas. He said he did not see any signs per CT of any pancreatitis. The CT and the findings also showed gas and fecal matter in the proximal colon as well as the sigmoid colon and extended into the anterior and mid abdomen. I was called for admission to the hospital. PAST MEDICAL HISTORY: 1. Abdominal pain in the past with a liver infection that required transport to [facility]. 2. Cholecystectomy after her fourth child several years ago. PAST SURGICAL HISTORY: 1. Gallbladder approximately 4 years ago. 2. Hernia repair at age 8. OUTPATIENT MEDICATIONS: None. ALLERGIES: NO KNOWN DRUG ALLERGIES. FAMILY HISTORY: Unremarkable. SOCIAL HISTORY: She is . She has 4 children. She works at [employer]. She lives in [place]. REVIEW OF SYSTEMS: GENERAL: Negative for fever, fatigue or weight changes. HEENT: Negative for ear pain, vision changes, sinus symptoms or sore throat. RESPIRATORY: Negative for coughing, wheezing, shortness of breath. CARDIAC: Negative for chest pain, palpitations or tachycardia. GASTROINTESTINAL: As per History of Present Illness. GENITOURINARY: Negative for hematuria, dysuria, polyuria. NEUROLOGIC: Negative for dizziness, headaches or seizures. PHYSICAL EXAMINATION: VITAL SIGNS: Temperature 99, heart rate 65, blood pressure 119/68, respiratory rate 16, O2 sat is 97% on room air. GENERAL: This is a 27 year-old female patient who is lying in her hospital bed. She is in no acute distress. HEENT: Normocephalic and atraumatic. Pupils are equal and reactive. Oropharynx is clear. Oral mucous membranes are moist. NECK: Supple without mass. RESPIRATORY: Clear to auscultation bilaterally. CHEST: There is equal rise and fall of the chest with inspiration and expiration. CARDIOVASCULAR: Regular rate and rhythm. GASTROINTESTINAL: Abdomen is soft, nondistended. She has very mild tenderness in the epigastric region. Otherwise is non-tender. There is no rebound tenderness. There is no guarding. Bowel sounds are positive. EXTREMITIES: No cyanosis, clubbing or edema. NEUROLOGIC: She is awake, alert and oriented times three. LABORATORY: Labs and films are as per the history of present illness. ASSESSMENT: 1. Epigastric abdominal pain with a history of a liver infection. 2. Constipation. 3. Nonobstructing kidney stones that will need a urology consultation at some point. PLAN: We will place the patient in Observation. I will give her a soap suds enema as well as some GoLYTELY. We will try to get the constipation improved and I will also send her home on some MiraLAX. I will recheck her labs in the morning as well as do an abdominal x-ray. She sees Patience Donaldson at [facility] and I will have her followup with her. She has seen Dr. Molina in the past for her GI issues and we will also need a referral to urology for the kidney stones. We will continue to monitor the patient closely and follow as needed. Dr. Mcintosh is the collaborating physician available for consultation. #[id number] [facility]
[2017-07-11] MEDS ORDERED: PROMETHAZINE HCL INJ 12.5 MG in SODIUM CHLORIDE 0.9% 50ML 50 ML IVPB ONE (12:54)
[2017-07-11] MEDS ORDERED: PROMETHAZINE HCL INJ 25 MG/ML VIAL ONE (12:56)
[2017-07-11] MEDS ORDERED: SODIUM CHLORIDE 0.9% 50ML 50 ML ONE (12:56)
[2017-07-11] MEDS ORDERED: ONDANSETRON INJ 4 MG/2 ML VIAL IV PRN (14:21)
[2017-07-11] MEDS ORDERED: IV SET AND CAP CHANGE INJ INJ SCH (14:30)
[2017-07-11] MEDS ORDERED: PEG-ELECTROLYTE 4,000 ML BTTL PO ONE (14:36)
[2017-07-11] MEDS: KCL 20MEQ/D5 1/2NS 1,000 ML IVS PRN ×2 (14:43→22:26)
[2017-07-11] MEDS ORDERED: MAGNESIUM HYDROXIDE 30 ML UD PO ONE (21:37)
[2017-07-11] MEDS ORDERED: BISACODYL SUPPOSITORY 10 MG PR ONE (21:37)
[2017-07-12] MEDS: KCL 20MEQ/D5 1/2NS 1,000 ML IVS PRN (06:08)
--- NOTE | 2017-07-12 07:10 | RAD ---
EXAM DESCRIPTION: Abdomen Flat Upright CLINICAL HISTORY: constipation and abdominal pain COMPARISON: July 11, 2017. FINDINGS: 2 views of the abdomen pelvis. Bowel gas pattern is normal in appearance. Normal amount of formed stool noted throughout the colon. No free intraperitoneal gas is demonstrated. Central left-sided nephrolithiasis is again seen. Right upper quadrant surgical clips/cholecystectomy clips. Prominent right lobe of the liver likely a Gerardo's lobe-normal variant. Osseous structures maintained. Lung bases clear. IMPRESSION: No radiographic evidence for acute abdominal or pelvic disease. Left-sided nephrolithiasis. Electronically signed by: Mj Villa MD 07/12/2017 7:09 AM [employer]
[2017-07-12 10:17] VITALS: BP 100/59; TEMP 98.1; O2SAT 97
--- NOTE | 2017-07-12 10:27 | DS ---
SUPERVISING PHYSICIAN: Corby Mcintosh MD DISCHARGE DIAGNOSIS: 1. Epigastric abdominal pain with a history of a liver infection. 2. Constipation. 3. Nonobstructing kidney stones that will need a urology consultation at some point. HISTORY OF PRESENT ILLNESS: This is a 27-year-old female patient who woke up on the day of admission in severe epigastric abdominal pain. Sometimes the pain radiated to the left and sometimes it radiated to the right around to the back. When the abdominal pain did not subside, she came to the Emergency Room. She had not had any vomiting prior to her admission to the Emergency Room, but in the Emergency Room, she vomited times 4. In February of last year, she was transferred to [facility] with some type of liver infection. Also about four years ago after the of her fourth child, she had her gallbladder taken out. CBC was basically within normal limits. Sodium 137 with potassium 3.5, chloride 102, carbon dioxide 28, BUN 10, creatinine 0.52. Liver enzymes were within normal limits. Lipase was slightly elevated at 80. She had a negative urinalysis. CT of the abdomen and pelvis per radiology interpretation showed: 1. Two radiodense stones in the left renal collecting system but no hydronephrosis, 5.7 mm stone in the upper collecting system which is at risk to enter the left ureter due to gravity. Consider Urology consult, bilateral ureters and kidneys are unremarkable. 2. No bowel obstruction or mucosal thickening. No free air or free fluid. 3. Borderline hepatomegaly with size of the spleen. No fluid in the gallbladder fossa. Dilation of intrahepatic and extrahepatic ducts is unremarkable in light of cholecystectomy. 4. Uterus and ovaries in normal position. No fluid in the cul-de-sac. Initially, it was thought that she had pancreatitis, but after obtaining the CT results, she was placed in observation in the hospital for constipation and abdominal pain. HOSPITAL COURSE: The patient was given some GoLYTELY and a soapsuds enema. She was only able to tolerate half of the GoLYTELY and only have of the soapsuds enema. She became very nauseated and required Zofran. She also could not hold any of the enema contents, so that was discontinued and she was given a Dulcolax suppository and Milk of Magnesia. She has had two generous stools and feels much better this morning. There are no complaints of abdominal pain, nausea or vomiting. She will be discharged home today. DISCHARGE PLAN: The patient will be discharged home today in stable condition. She is to resume her activity as tolerated and to resume her previous diet except she has been advised to increase her fiber in her diet including adding fruits and vegetables. She has a followup with Ctaalina Gottlieb NP, at [facility] on 07/19/17 at 9:30 AM. She has seen Dr. Molina in the past for her GI issues and it may benefit her to have a followup with him. As per the CT results, she will need a urology consult. I have prescribed her MiraLAX 17 grams daily. She is to return to the hospital or to followup with Catalina Gottlieb for any further problems or complications. DISCHARGE MEDICATIONS: 1. Pantoprazole. 2. MiraLAX. Dr. Mcintosh is the collaborating physician and available for consultation. #[id number] [facility]
== END 2017-07-12 10:50 | disposition home or self-care (01) ==
LOC: ER 08:24 → MS 11:33 → INTOOBSV 11:33
PROVIDERS: ADMIT Nurse Practitioner Acute Care; ATTEND Nurse Practitioner Acute Care
DX: R10.13 Epigastric pain (principal); K59.00 Constipation, unspecified; N20.0 Calculus of kidney; R11.2 Nausea with vomiting, unspecified; Z90.49 Acquired absence of other specified parts of digestive tract
CPT/HCPCS: 36415 ×3; 74019; 74177; 80048 ×2; 80076; 81001; 83690; 84703; 85025 ×2; 94760 ×3; 96361 ×2; 96365; 96375; 96376 ×2; 99284; A4216; G0378; J1885; J2270 ×3; J2405 ×2; J2550; J7030

== ENCOUNTER 2018-01-17 03:22 | Emergency (ER) | payer SELFPAY ==
[2018-01-17 03:39] VITALS: BP 126/88; TEMP 97.6; O2SAT 18
--- NOTE | 2018-01-17 03:50 | ED.PDOC ---
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 Timing/Duration: days - 3 1/2 days Quality/Severity: moderate, dullness Back Pain Location: T-spine, lumbar spine Back Pain Radiation: other - NONE Method of Injury/Prior Injury: other - lifting Improving Factors: rest Worsening Factors: movement Associated Symptoms: other - NONE Allergies/Adverse Reactions: Allergies NO KNOWN ALLERGY Allergy (Verified 01/17/18 03:30) Home Medications: Ambulatory Orders Baclofen 20 mg PO BID #30 tab 01/17/18 Diclofenac Sodium [Diclofenac Sodium Dr] 75 mg PO BID #30 tab 01/17/18 Review of Systems - Review of Systems Constitutional: States: no symptoms reported EENTM: States: no symptoms reported Respiratory: States: no symptoms reported Cardiology: States: no symptoms reported Gastrointestinal/Abdominal: States: no symptoms reported Genitourinary: States: no symptoms reported Musculoskeletal: States: see HPI Skin: States: no symptoms reported Neurological: States: no symptoms reported Past Medical History (General) - Patient Medical History Hx Seizures: No Hx Stroke: No Hx Dementia: No Hx Asthma: No Hx of COPD: No Hx Cardiac Disorders: No Hx Congestive Heart Failure: No Hx Pacemaker: No Hx Hypertension: No Hx Thyroid Disease: No Hx Diabetes: No Hx Gastroesophageal Reflux: No Hx Renal Disease: No Hx Cancer: No Hx of HIV: No Hx Hepatitis C: No Hx MRSA: No Surgical History: cholecystectomy, other - BTL - Vaccination History Hx Tetanus, Diphtheria Vaccination: No Hx Influenza Vaccination: Yes Hx Pneumococcal Vaccination: No - Social History Hx Tobacco Use: No Hx Chewing Tobacco Use: No Hx Alcohol Use: Yes - occ Hx Substance Use: No Hx Substance Use Treatment: No Hx Depression: No Hx Physical Abuse: No Hx Emotional Abuse: No Hx Suspected Abuse: No - Female History Hx Last Menstrual Period: 12/05/17 Patient : No Family Medical History - Family History Mother Family History: Unknown Physical Exam - Physical Exam General Appearance: Alert, Comfortable, No apparent distress Eyes, Ears, Nose, Throat Exam: normal ENT inspection Neck Exam: non-tender, full range of motion, normal inspection Cardiovascular/Respiratory: regular rate, rhythm, no M/R/G, normal peripheral pulses Peripheral Pulses: radial,right: 2+, radial,left: 2+ Gastrointestinal/Abdominal: normal bowel sounds, non tender, soft Back Exam: normal inspection, no CVA tenderness, no vertebral tenderness, decreased range of motion - due to muscle spasm, muscle spasm - from lower thoracic spine to lumbar spine Extremity Exam: no evidence of injury, normal range of motion, non-tender Neurologic: no motor/sensory deficits, alert, oriented x 3 Skin Exam: normal color, warm/dry Progress - Progress Progress: 01/17/18 03:54 Vital Signs - 8 hr 01/17/18 03:31 Temperature 97.6 F Pulse Rate [ 56 L left] Respiratory 18 Rate Blood Pressure 126/88 [left] O2 Sat by Pulse 18 L Oximetry 01/17/18 03:57 She was given 2 IM injections:Toradol-30mg ;Norflex-60 mg. and oral Hydrocodone w/ acetominophen 5 mg. po Departure - Departure Clinical Impression: Strain of muscle, fascia and tendon of lower back, initial encounter, Back muscle spasm Time of Disposition: 04:00 Disposition: Discharge to Home or Self Care Condition: Fair Departure Forms: ED Discharge - Pt. Copy, Patient Portal Self Enrollment Instructions: Muscle Strain, Lumbar Muscle Strain (DC), Lumbar Muscle Strain, Muscle Strain (DC) Referrals: Catalina Gottlieb NP [Primary Care Provider] - 1-2 Weeks Prescriptions: Baclofen 20 mg PO BID #30 tab Diclofenac Sodium [Diclofenac Sodium Dr] 75 mg PO BID #30 tab Home Medications: Ambulatory Orders Baclofen 20 mg PO BID #30 tab 01/17/18 Diclofenac Sodium [Diclofenac Sodium Dr] 75 mg PO BID #30 tab 01/17/18 Additional Instructions: NEED TO FOLLOW UP WITH YOU YUNI ATKINS MD 17 JANUARY 2018 call for appointment;NO HEAVY LIFTING MORE THAN 25 POUNDS UNTIL EVALUATED BY YUIN ATKINS Md.
[2018-01-17] MEDS ORDERED: HYDROcodone 5MG/APAP 325MG 1 EA TAB PO ONE (03:55)
[2018-01-17] MEDS ORDERED: ORPHENADRINE CITRATE 30 MG/ML AMP IM ONE (03:55)
[2018-01-17] MEDS ORDERED: KETOROLAC TROMETHAMINE INJ 30 MG/ML VIAL IM ONE (03:55)
== END 2018-01-17 04:16 | disposition home or self-care (01) ==
LOC: ER 03:22
DX: S39.012A Strain of muscle, fascia and tendon of lower back, initial encounter (principal); X50.0XXA Overexertion from strenuous movement or load, initial encounter; Y92.129 Unspecified place in nursing home as the place of occurrence of the external cause; Y99.0 Civilian activity done for income or pay
CPT/HCPCS: J1885; J2360

== ENCOUNTER → 2018-04-15 | Emergency (ER) | payer SELFPAY | LOC: ER 12:35 | DX: R50.9 Fever, unspecified (principal); Z53.21 Procedure and treatment not carried out due to patient leaving prior to being seen by health care provider ==

== ENCOUNTER 2018-04-29 17:25 | Emergency (ER) | payer SELFPAY ==
[2018-04-29] MEDS ORDERED: SODIUM CHLORIDE 0.9% 1000ML 1,000 ML IVS ONE (17:50)
[2018-04-29] MEDS ORDERED: ONDANSETRON INJ 4 MG/2 ML VIAL IV ONE (17:50)
--- NOTE | 2018-04-29 17:56 | ED.PDOC ---
History of Present Illness - General Chief Complaint: Respiratory Problem Time Seen by Provider: 04/29/18 17:50 Source: patient Exam Limitations: no limitations - History of Present Illness Comments: COUGH, N/V/D. 2 DAYS, MILD YESTERDAY, WORSE TODAY. Cough Quality/Degree: moderate Improving Factors: nothing Associated Symptoms: sore throat Allergies/Adverse Reactions: Allergies NO KNOWN ALLERGY Allergy (Verified 01/17/18 03:30) Home Medications: Ambulatory Orders Baclofen 20 mg PO BID #30 tab 01/17/18 Diclofenac Sodium [Diclofenac Sodium Dr] 75 mg PO BID #30 tab 01/17/18 Albuterol Inhaler [Ventolin Hfa Inhaler] 2 puff INH Q4HR PRN #1 inh 04/29/18 Ondansetron [Zofran Odt] 4 mg PO TID PRN #6 tab 04/29/18 guaiFENesin W/CODEINE LIQ [Robitussin AC] 10 ml PO Q6HRS PRN #4 oz 04/29/18 Review of Systems - Review of Systems Constitutional: States: chills, fever - SUBJECTIVE EENTM: States: ear pain, throat pain Respiratory: States: cough, other - PROD YELLOW SPUTUM. Denies: short of breath , wheezing Cardiology: Denies: chest pain, palpitations Gastrointestinal/Abdominal: States: diarrhea, nausea, vomiting. Denies: abdominal pain Genitourinary: States: no symptoms reported Musculoskeletal: States: no symptoms reported Skin: States: other - DIAPHORESIS Neurological: States: no symptoms reported Endocrine: States: no symptoms reported Hematologic/Lymphatic: States: no symptoms reported Past Medical History (General) - Patient Medical History Hx Seizures: No Hx Stroke: No Hx Dementia: No Hx Asthma: No Hx of COPD: No Hx Cardiac Disorders: No Hx Congestive Heart Failure: No Hx Pacemaker: No Hx Hypertension: No Hx Thyroid Disease: No Hx Diabetes: No Hx Gastroesophageal Reflux: No Hx Renal Disease: No Hx Cancer: No Hx of HIV: No Hx Hepatitis C: No Hx MRSA: No - Vaccination History Hx Tetanus, Diphtheria Vaccination: No Hx Influenza Vaccination: Yes Hx Pneumococcal Vaccination: No - Social History Hx Tobacco Use: No Hx Chewing Tobacco Use: No Hx Alcohol Use: Yes - occ Hx Substance Use: No Hx Substance Use Treatment: No Hx Depression: No Hx Physical Abuse: No Hx Emotional Abuse: No Hx Suspected Abuse: No - Female History Hx Last Menstrual Period: 12/05/17 Patient : No Expected Date of Delivery:: 06/05/13 Family Medical History - Family History Mother Family History: Unknown Physical Exam - Physical Exam General Appearance: Alert, No apparent distress Eye Exam: bilateral normal ENT Exam: normal ENT inspection, hearing grossly normal, TMs normal, pharynx normal Neck: non-tender, full range of motion, supple Respiratory: lungs clear, normal breath sounds, no respiratory distress Cardiovascular/Chest: regular rate, rhythm, no murmur Gastrointestinal/Abdominal: normal bowel sounds, non tender, soft Extremity: normal range of motion, non-tender, normal inspection Neurologic: alert, normal mood/affect Skin Exam: normal color, other - WARM, SLIGHTLY DAMP Lymphatic: no adenopathy Departure - Departure Clinical Impression: Viral pharyngitis Acute bronchiolitis Qualifiers: Bronchiolitis organism: unspecified organism Qualified Code(s): J21.9 - Acute bronchiolitis, unspecified Vomiting Qualifiers: Vomiting type: unspecified Vomiting Intractability: non-intractable Nausea presence: with nausea Qualified Code(s): R11.2 - Nausea with vomiting, unspecified Time of Disposition: 19:27 Disposition: Discharge to Home or Self Care Condition: Good Departure Forms: ED Discharge - Pt. Copy, Patient Portal Self Enrollment Instructions: Acute Bronchitis, Nausea and Vomiting, Adult (DC), Viral Pharyngitis Referrals: Catalina Gottlieb, [facility] [Primary Care Provider] - 1-2 Weeks Prescriptions: Albuterol Inhaler [Ventolin Hfa Inhaler] 2 puff INH Q4HR PRN #1 inh PRN Reason: Shortness Of Breath guaiFENesin W/CODEINE LIQ [Robitussin AC] 10 ml PO Q6HRS PRN #4 oz PRN Reason: Cough Ondansetron [Zofran Odt] 4 mg PO TID PRN #6 tab PRN Reason: Nausea/Vomiting Home Medications: Ambulatory Orders Baclofen 20 mg PO BID #30 tab 01/17/18 Diclofenac Sodium [Diclofenac Sodium Dr] 75 mg PO BID #30 tab 01/17/18 Albuterol Inhaler [Ventolin Hfa Inhaler] 2 puff INH Q4HR PRN #1 inh 04/29/18 Ondansetron [Zofran Odt] 4 mg PO TID PRN #6 tab 04/29/18 guaiFENesin W/CODEINE LIQ [Kathi AC] 10 ml PO Q6HRS PRN #4 oz 04/29/18
--- NOTE | 2018-04-29 18:24 | RAD ---
EXAM DESCRIPTION: Chest,2 Views CLINICAL HISTORY: Cough, nausea and vomiting COMPARISON: Chest radiograph dated July 03, 2017 TECHNIQUE: Upright PA and lateral views of the chest FINDINGS: Cardiomediastinal silhouette and pulmonary vascularity are within normal limits. Lungs are clear without focal consolidations. Bilateral costophrenic angles are sharp. No pneumothorax. Visualized osseous structures show no destructive lesions. Redemonstration of cholecystectomy clips in the right upper abdominal quadrant. IMPRESSION: No radiographic evidence for acute cardiopulmonary process. Electronically signed by: Justin Hearn MD 04/29/2018 6:23 PM [facility]
[2018-04-29] MEDS ORDERED: DEXAMETHASONE INJ 10 MG/ML VIAL IM ONE (19:15)
[2018-04-29] MEDS ORDERED: ACETAMINOPHEN 500 MG TAB PO ONE (19:15)
[2018-04-29] MEDS ORDERED: IPRATROPIUM/ALBUTEROL 3 ML VIAL NEB ONE (19:17)
[2018-04-29 20:04] VITALS: BP 117/79; TEMP 99.6; O2SAT 98
== END 2018-04-29 19:48 | disposition home or self-care (01) ==
LOC: ER 17:25
DX: J21.9 Acute bronchiolitis, unspecified (principal); J02.9 Acute pharyngitis, unspecified; R11.2 Nausea with vomiting, unspecified
CPT/HCPCS: 36415; 71046; 80048; 85025; 87070; 87880; 94640; J1100; J2405; J7620

== ENCOUNTER 2018-08-07 17:05 | Emergency (ER) | payer OTHER ==
[2018-08-07] MEDS ORDERED: IBUPROFEN 200 MG TAB PO ONE (17:19)
[2018-08-07] MEDS ORDERED: CETIRIZINE HCL 10 MG TAB PO ONE (17:20)
--- NOTE | 2018-08-07 18:26 | ED.PDOC ---
History of Present Illness - General Chief Complaint: General Stated Complaint: headache, congestion Time Seen by Provider: 08/07/18 17:19 Source: patient Exam Limitations: no limitations - History of Present Illness Initial Comments: the patient is a 28-year-old female presenting to the emergency room secondary to flulike symptoms. She has had this for the last 30 hours including sore throat, runny nose, cough, body aches, mild headache and fever.no vomiting. Timing/Duration: 24 hours Severity: moderate Improving Factors: nothing Worsening Factors: nothing Associated Symptoms: cough, fever/chills, headaches, malaise Allergies/Adverse Reactions: Allergies NO KNOWN ALLERGY Allergy (Verified 01/17/18 03:30) Home Medications: Ambulatory Orders Baclofen 20 mg PO BID #30 tab 01/17/18 Diclofenac Sodium [Diclofenac Sodium Dr] 75 mg PO BID #30 tab 01/17/18 Albuterol Inhaler [Ventolin Hfa Inhaler] 2 puff INH Q4HR PRN #1 inh 04/29/18 Ondansetron [Zofran Odt] 4 mg PO TID PRN #6 tab 04/29/18 guaiFENesin W/CODEINE LIQ [Robitussin AC] 10 ml PO Q6HRS PRN #4 oz 04/29/18 Review of Systems - Review of Systems Constitutional: States: chills, fever, malaise EENTM: States: nose congestion, throat pain Respiratory: States: cough Cardiology: States: no symptoms reported Gastrointestinal/Abdominal: States: no symptoms reported Genitourinary: States: no symptoms reported Musculoskeletal: States: other - general myalgias Skin: States: no symptoms reported Neurological: States: headache Endocrine: States: no symptoms reported All other Systems: No Change from Baseline Past Medical History (General) - Patient Medical History Hx Seizures: No Hx Stroke: No Hx Dementia: No Hx Asthma: No Hx of COPD: No Hx Cardiac Disorders: No Hx Congestive Heart Failure: No Hx Pacemaker: No Hx Hypertension: No Hx Thyroid Disease: No Hx Diabetes: No Hx Gastroesophageal Reflux: No Hx Renal Disease: No Hx Cancer: No Hx of HIV: No Hx Hepatitis C: No Hx MRSA: No Surgical History: other - Vaccination History Hx Tetanus, Diphtheria Vaccination: No Hx Influenza Vaccination: Yes Hx Pneumococcal Vaccination: No - Social History Hx Tobacco Use: No Hx Chewing Tobacco Use: No Hx Alcohol Use: Yes - occ Hx Substance Use: No Hx Substance Use Treatment: No Hx Depression: No Hx Physical Abuse: No Hx Emotional Abuse: No Hx Suspected Abuse: No - Female History Hx Last Menstrual Period: 12/05/17 Patient : No Expected Date of Delivery:: 06/05/13 Family Medical History - Family History Mother Family History: Unknown Physical Exam - Physical Exam General Appearance: Alert, No apparent distress Eye Exam: bilateral normal Ears, Nose, Throat: hearing grossly normal, nasal congestion, pharyngeal erythema Neck: full range of motion, supple Respiratory: lungs clear, normal breath sounds, no respiratory distress, no accessory muscle use Cardiovascular/Chest: normal peripheral pulses, regular rate, rhythm, no edema Peripheral Pulses: radial,right: 2+, radial,left: 2+, dorsalis pedis,right: 2+, dorsalis pedis,left: 2+ Gastrointestinal/Abdominal: non tender, soft Back Exam: normal inspection Extremity: normal range of motion, normal inspection, no pedal edema, normal capillary refill Neurologic: design assistant II-XII nml as tested, alert, normal mood/affect, oriented x 3 Skin Exam: normal color Comments: Vital Signs - 24 hr 08/07/18 08/07/18 17:15 17:50 Temperature 99.6 F Pulse Rate [ 71 left brachial] Respiratory 20 20 Rate Blood Pressure 121/78 [left brachial] O2 Sat by Pulse 99 Oximetry Progress - Progress Progress: 08/07/18 18:25 the patient is a 28-year-old spent female presenting secondary to a viral upper respiratory tract infection. She has tested negative for the flu. She needs to keep herself well hydrated. I recommended taking Motrin 600 mg 3 times daily for the next couple of days to help reduce symptoms along with Zyrtec 10 mg twice daily for the next few days as well. ER warnings were given for any significant worsening. Keep routine follow-up with primary care doctor. Symptoms will likely last 5-7 days. Departure - Departure Clinical Impression: Viral upper respiratory illness Disposition: Discharge to Home or Self Care Condition: Fair Departure Forms: ED Discharge - Pt. Copy, Patient Portal Self Enrollment Instructions: Cough, Runny Nose, and the Common Cold (DC) Diet: regular diet Activity: increase activity as tolerated Referrals: Catalina Gottlieb NP [Primary Care Provider] - 1-2 Weeks Home Medications: Ambulatory Orders Baclofen 20 mg PO BID #30 tab 01/17/18 Diclofenac Sodium [Diclofenac Sodium Dr] 75 mg PO BID #30 tab 01/17/18 Albuterol Inhaler [Ventolin Hfa Inhaler] 2 puff INH Q4HR PRN #1 inh 04/29/18 Ondansetron [Zofran Odt] 4 mg PO TID PRN #6 tab 04/29/18 guaiFENesin W/CODEINE LIQ [Robitussin AC] 10 ml PO Q6HRS PRN #4 oz 04/29/18 Additional Instructions: the patient is a 28-year-old spent female presenting secondary to a viral upper respiratory tract infection. She has tested negative for the flu. She needs to keep herself well hydrated. I recommended taking Motrin 600 mg 3 times daily for the next couple of days to help reduce symptoms along with Zyrtec 10 mg twice daily for the next few days as well. ER warnings were given for any significant worsening. Keep routine follow-up with primary care doctor. Symptoms will likely last 5-7 days.
[2018-08-07 19:01] VITALS: BP 117/71; TEMP 98.9; O2SAT 97
== END 2018-08-07 18:40 | disposition home or self-care (01) ==
LOC: ER 17:05
DX: J06.9 Acute upper respiratory infection, unspecified (principal)

== ENCOUNTER 2019-01-24 09:44 | Emergency (ER) | payer SELFPAY ==
[2019-01-24] MEDS ORDERED: ONDANSETRON INJ 4 MG/2 ML VIAL IV ONE (10:07)
[2019-01-24] MEDS ORDERED: KETOROLAC TROMETHAMINE INJ 30 MG/ML VIAL IV ONE (10:32)
--- NOTE | 2019-01-24 11:08 | ED.PDOC ---
History of Present Illness - General Chief Complaint: Abdominal Pain Stated Complaint: left side pain; vomiting Time Seen by Provider: 01/24/19 10:13 Source: patient Exam Limitations: no limitations - History of Present Illness Initial Comments: Patient presents with left flank pain since last night. Aching and sharp, non- radiating, no exacerbating nor alleviating factors, no previous episodes, associated with multiple episodes of N/V today. No diarrhea. s/p cholecystectomy and BTL. No other complaints. Timing/Duration: other - 15 hours Severity: moderate Improving Factors: nothing Worsening Factors: nothing Associated Symptoms: other - as in HPI Allergies/Adverse Reactions: Allergies NO KNOWN ALLERGY Allergy (Verified 01/17/18 03:30) Home Medications: Ambulatory Orders Ketorolac Tromethamine [Toradol Tabs] 10 mg PO Q6HRS PRN #16 tab 01/24/19 Ondansetron HCl [Zofran] 4 mg PO Q4HR PRN #12 tab 01/24/19 Review of Systems - Review of Systems Constitutional: States: no symptoms reported EENTM: States: no symptoms reported Respiratory: States: no symptoms reported Cardiology: States: no symptoms reported Gastrointestinal/Abdominal: States: see HPI Genitourinary: States: see HPI Musculoskeletal: States: no symptoms reported Skin: States: no symptoms reported Neurological: States: no symptoms reported Endocrine: States: no symptoms reported Hematologic/Lymphatic: States: no symptoms reported Past Medical History (General) - Patient Medical History Hx Seizures: No Hx Stroke: No Hx Dementia: No Hx Asthma: No Hx of COPD: No Hx Cardiac Disorders: No Hx Congestive Heart Failure: No Hx Pacemaker: No Hx Hypertension: No Hx Thyroid Disease: No Hx Diabetes: No Hx Gastroesophageal Reflux: No Hx Renal Disease: No Hx Cancer: No Hx of HIV: No Hx Hepatitis C: No Hx MRSA: No Surgical History: cholecystectomy, other - Vaccination History Hx Tetanus, Diphtheria Vaccination: No Hx Influenza Vaccination: Yes Hx Pneumococcal Vaccination: No - Social History Hx Tobacco Use: No Hx Chewing Tobacco Use: No Hx Alcohol Use: Yes - occ Hx Substance Use: No Hx Substance Use Treatment: No Hx Depression: No Hx Physical Abuse: No Hx Emotional Abuse: No Hx Suspected Abuse: No - Female History Hx Last Menstrual Period: 12/05/17 Patient : No Expected Date of Delivery:: 06/05/13 Family Medical History - Family History Mother Family History: Unknown Physical Exam - Physical Exam General Appearance: Alert, Obvious distress - moderate distress Eye Exam: bilateral normal Ears, Nose, Throat: normal ENT inspection Neck: non-tender, full range of motion, supple Respiratory: lungs clear, normal breath sounds Cardiovascular/Chest: normal peripheral pulses, regular rate, rhythm Gastrointestinal/Abdominal: normal bowel sounds, soft, other - Mild TTP of left flank, abdomen NTTP, no guarding. lap hannah scar visible Back Exam: normal inspection, no CVA tenderness Extremity: normal range of motion, non-tender, normal inspection Neurologic: no motor/sensory deficits, alert, normal mood/affect, oriented x 3 Skin Exam: normal color Lymphatic: no adenopathy Progress - Progress Progress: 01/24/19 11:42 Laboratory Tests 01/24/19 01/24/19 01/24/19 09:55 09:55 09:55 WBC 8.5 RBC 5.23 Hgb 11.2 L Hct 35.9 L MCV 68.6 L MCH 21.5 L MCHC 31.3 L RDW 18.1 H Plt Count 264 MPV 10.2 Absolute Neuts (auto) 5.80 Absolute Lymphs (auto) 1.80 Absolute Monos (auto) 0.70 Absolute Eos (auto) 0.20 Absolute Basos (auto) 0.10 Neutrophils % 68.0 Lymphocytes % 20.7 Monocytes % 8.5 Eosinophils % 1.8 Basophils % 1.0 Sodium Potassium Chloride Carbon Dioxide Anion Gap BUN Creatinine BUN/Creatinine Ratio Random Glucose Serum Osmolality Calcium Urine Color Yellow Urine Appearance Clear Urine pH 6.0 Ur Specific [place] >= 1.030 Urine Protein Trace Urine Glucose (UA) Negative Urine Ketones Negative Urine Blood Moderate H Urine Nitrite Negative Urine Bilirubin Negative Urine Urobilinogen 0.2 Ur Leukocyte Esterase Negative Urine RBC 10-20 H Urine WBC 0 Ur Epithelial Cells 20-30 Urine Bacteria Rare Urine HCG, Qual Negative 01/24/19 09:55 WBC RBC Hgb Hct MCV MCH MCHC RDW Plt Count MPV Absolute Neuts (auto) Absolute Lymphs (auto) Absolute Monos (auto) Absolute Eos (auto) Absolute Basos (auto) Neutrophils % Lymphocytes % Monocytes % Eosinophils % Basophils % Sodium 141 Potassium 3.6 Chloride 106 Carbon Dioxide 25 Anion Gap 13.6 BUN 16 Creatinine 0.91 BUN/Creatinine Ratio 17.6 Random Glucose 108 H Serum Osmolality 283.0 Calcium 9.2 Urine Color Urine Appearance Urine pH Ur Specific [place] Urine Protein Urine Glucose (UA) Urine Ketones Urine Blood Urine Nitrite Urine Bilirubin Urine Urobilinogen Ur Leukocyte Esterase Urine RBC Urine WBC Ur Epithelial Cells Urine Bacteria Urine HCG, Qual CT ab/pelvis showed 4 mm x 5 mm left ureteral stone. Patient received Toradol 30 mg IV x one shortly after arrival. HCG negative. Care instructions given. E.R. warnings given. Questions were elicited and answered. Patient voiced understanding and agreement with the plan. Departure - Departure Clinical Impression: Ureteric stone Disposition: Discharge to Home or Self Care Condition: Good Departure Forms: ED Discharge - Pt. Copy, Patient Portal Self Enrollment Instructions: DI for Abdominal Pain-Adult Diet: resume usual diet, other - increase oral fluids Activity: increase activity as tolerated Referrals: Catalina Gottlieb FIELD GEOLOGIST [Primary Care Provider] - 1-2 Weeks Prescriptions: Ondansetron HCl [Zofran] 4 mg PO Q4HR PRN #12 tab PRN Reason: Nausea/Vomiting Ketorolac Tromethamine [Toradol Tabs] 10 mg PO Q6HRS PRN #16 tab PRN Reason: Pain Home Medications: Ambulatory Orders Ketorolac Tromethamine [Toradol Tabs] 10 mg PO Q6HRS PRN #16 tab 01/24/19 Ondansetron HCl [Zofran] 4 mg PO Q4HR PRN #12 tab 01/24/19 Additional Instructions: Drinking plenty of fluids. Take medications as prescribed. Return to the E.R. for temperature 100.4 or greater or if symptoms do not resolve in 4 days. Critical Care Note - Critical Care Note Total Time (mins): 35
[2019-01-24 11:16] VITALS: O2SAT 100
--- NOTE | 2019-01-24 11:31 | CT ---
PROCEDURE: CT Abdomen and Pelvis Without Intravenous Contrast CLINICAL INDICATION: The patient is 28 years years old, Female; left flank pain, hematuria TECHNIQUE: Axial computed tomography images of the abdomen and pelvis without intravenous contrast. Sagittal and coronal reformatted images were created and reviewed. This CT exam was performed using one or more of the following dose reduction techniques: automated exposure control, adjustment of the mA and/or kV according to patient size, and/or use of iterative reconstruction technique. COMPARISON: CT abdomen and pelvis dated 07/11/2017 FINDINGS: LUNG BASES: There is trace dependent fluid or atelectasis bilaterally. ABDOMEN: LIVER: Unremarkable. The liver is normal in size and configuration. There are no significant focal defects. There is no evidence of biliary ductal dilatation. GALLBLADDER AND BILE DUCTS: The gallbladder is absent status post cholecystectomy with surgical clips in the gallbladder fossa. PANCREAS: Unremarkable. No ductal dilatation, inflammatory changes or mass. SPLEEN: Unremarkable. No splenomegaly or focal defects. ADRENALS: Unremarkable. No mass or calcification. KIDNEYS AND URETERS: There is mild left perinephric, peripelvic and periureteric reticulation as well as mild left pelvocaliectasis and ureterectasis secondary to a 0.6 cm AP by 0.4 cm T by 0.5 cm CC obstructive calculus located in the upper to mid left ureter. There are two remaining calculi in the lower pole of the left kidney, the largest measuring up to 0.5 cm a punctate calcific density or vascular calcification is noted in the upper pole of the right kidney. There is no evidence of right hydronephrosis. There are no solid renal masses. STOMACH AND BOWEL: The stomach, small bowel and colon are unremarkable allowing for incomplete distention PELVIS: APPENDIX: The appendix is present and appears normal. BLADDER: The urinary bladder appears thick walled up to 6 mm. No evidence of cystolithiasis or discrete bladder mass. REPRODUCTIVE: The uterus and adnexa are unremarkable. ABDOMEN and PELVIS: INTRAPERITONEAL SPACE: Unremarkable. No free air or free fluid. No significant focal fluid collection. BONES/JOINTS: There is no evidence of acute fracture, osseous destruction or osteoblastic changes. SOFT TISSUES: Unremarkable. VASCULATURE: Unremarkable. No abdominal aortic aneurysm. LYMPH NODES: Unremarkable. There is no evidence of hilar, mediastinal or axillary adenopathy. IMPRESSION: 1. 0.6 cm AP by 0.4 cm T by 0.5 cm CC obstructive calculus located in the upper to mid left ureter. 2. The appearance of the bladder wall thickening, defined as greater than 3 mm in a distended bladder and greater than 5 mm when nondistended, may be caused or exaggerated by incomplete distention. However, cystitis is also suspected. Other less likely differential considerations include neurogenic bladder and detrusor muscle hypertrophy as can occur with bladder outlet obstruction or autonomic dysfunction in the appropriate clinical setting. Recommend correlation with urinalysis. Electronically signed by: Laxmi Salgado MD 01/24/2019 11:29 AM CDT
[2019-01-24 12:06] VITALS: BP 110/70; TEMP 98.5
== END 2019-01-24 12:02 | disposition home or self-care (01) ==
LOC: ER 09:44
DX: N13.2 Hydronephrosis with renal and ureteral calculous obstruction (principal); Z90.49 Acquired absence of other specified parts of digestive tract
CPT/HCPCS: 36415; 74176; 80048; 81001; 81025; 85025; J1885; J2405

== ENCOUNTER 2019-02-17 19:02 | Emergency (ER) | payer SELFPAY ==
[2019-02-17 19:20] VITALS: TEMP 98.2
[2019-02-17] MEDS ORDERED: HYDROmorphone HCL INJ 2 MG/ML VIAL IV ONE (20:01)
--- NOTE | 2019-02-17 20:43 | CT ---
Sex: Female. : 1990. Technique: Axial scans through the abdomen and pelvis without intravenous contrast including multiplanar computer reformations. Total Dose Length Product: 518. This exam was performed according to our departmental dose-optimization program, which includes automated exposure control, adjustment of the mA and/or kV according to patient size and/or use of iterative reconstruction technique. Comparison studies: January 24, 2019. Clinical history: PERSISTENT L FLANK PAIN; RECENT DX NEPHROLITHIASIS. Findings: Liver: Size: 18.7 cm. Parenchyma: No mass. Vasculature: Portal and hepatic veins: Indeterminate, noncontrast. Spleen: Normal. Gallbladder: Cholecystectomy. Bile ducts: No biliary dilatation. Pancreas: normal. Adrenal glands: Normal. Kidneys: Right kidney: Right kidney is 10.5 cm. There is a punctate stone in the upper pole of the right kidney for example series 2 image 51. There is no right ureteral dilatation. Left kidney: Left kidney is 10.4 cm. A left ureteral stent has been placed. There is slight left periureteral thickening. The previous stone seen in the proximal left ureter is no longer present. The previous stones seen in the left kidney are no longer present. There is no left perinephric fluid collection. The previous hydronephrosis is largely resolved. Bladder: Underdistended. Ureteral stent. Uterus: Position: Anteverted. Adnexa: 5.5 cm right adnexal cyst has developed in the exam interval. Intestinal Tract: Stomach and duodenum: Unremarkable Small bowel: Normal. Large bowel: Normal. Appendix: Normal. Mesentery and Omentum: Normal. Retroperitoneum: Normal. Vasculature: Aorta: Normal. Iliac arteries: Normal. Free fluid: None. Musculoskeletal: Musculature, abdominal wall and soft tissues: Unremarkable. Skeletal structures: Unremarkable. Lung bases: Clear. Impression: 1. Interval placement left ureteral stent and resolution of the previous hydronephrosis. Previously seen proximal left ureteral stone is not demonstrated now. Previous left kidney stones are not demonstrated. 2. Interval development of a 5.5 cm right ovary cyst. See management discussion below. Recommendations for f/u of anechoic simple cyst, simple cyst with single thin <3mm septation, or focal calcification in wall of cyst1: Pre-menopause: < 5 cm No f/u necessary >5cm - <7cm US f/u yearly >7cm Consider MR w/IVC or surgical evaluation Post-menopause (1 year or more since last menstrual period): <3 cm No f/u necessary >3cm - <7 cm US f/u yearly >7cm Consider MR w/IVC or surgical evaluation 1. Recommendations based upon the 2010 SRU Consensus Conference Statement on the Management of asymptomatic ovarian and adnexal cysts imaged at US. Radiology. 2009;256(3):943-54 Electronically signed by: Mohan Gupta MD 02/17/2019 8:41 PM CDT
--- NOTE | 2019-02-17 21:46 | ED.PDOC ---
History of Present Illness - General Chief Complaint: Problem Stated Complaint: Left flank pain Time Seen by Provider: 02/17/19 19:52 Source: patient Exam Limitations: no limitations - History of Present Illness Initial Comments: L FLANK PAIN. WAS IN HOSPITAL JAN 31, FOUND KIDNEY STONE AND IFXN. STENT PLACED IN L URETER AND GIVEN 7 D LEVAQUIN. SHE FINISHED THE ABX 10 D AGO. IS STILL HAVING SEVERE L FLANK PAIN, NOT ALLEVIATED BY NSAIDS AND TYLENOL. NO DYSURIA IN PELVIS BUT HAS PAIN IN L FLANK WHEN VOIDS. Severity: severe Improving Factors: nothing Worsening Factors: nothing Associated Symptoms: denies symptoms Allergies/Adverse Reactions: Allergies NO KNOWN ALLERGY Allergy (Verified 01/17/18 03:30) Home Medications: Ambulatory Orders Ketorolac Tromethamine [Toradol Tabs] 10 mg PO Q6HRS PRN #16 tab 01/24/19 Ondansetron HCl [Zofran] 4 mg PO Q4HR PRN #12 tab 01/24/19 Nitrofurantoin Monohydrate Mac [Macrobid] 100 mg PO BID #14 cap 02/17/19 Tamsulosin HCl [Flomax] 0.4 mg PO DAILY 10 Days #10 cap 02/17/19 Tramadol HCl [Ultram] 50 mg PO Q6HR PRN #15 tab 02/17/19 Review of Systems - Review of Systems Constitutional: States: no symptoms reported EENTM: States: no symptoms reported Respiratory: States: no symptoms reported Cardiology: States: no symptoms reported Gastrointestinal/Abdominal: Denies: abdominal pain, constipation, diarrhea, nausea, vomiting Genitourinary: States: pain - L FLANK. Denies: discharge, dysuria, frequency, hematuria Musculoskeletal: States: no symptoms reported Skin: States: no symptoms reported Neurological: States: no symptoms reported Endocrine: States: no symptoms reported Hematologic/Lymphatic: States: no symptoms reported All other Systems: Reviewed and Negative Past Medical History (General) - Patient Medical History Hx Seizures: No Hx Stroke: No Hx Dementia: No Hx Asthma: No Hx of COPD: No Hx Cardiac Disorders: No Hx Congestive Heart Failure: No Hx Pacemaker: No Hx Hypertension: No Hx Thyroid Disease: No Hx Diabetes: No Hx Gastroesophageal Reflux: No Hx Renal Disease: No Hx Cancer: No Hx of HIV: No Hx Hepatitis C: No Hx MRSA: No Surgical History: cholecystectomy - Vaccination History Hx Tetanus, Diphtheria Vaccination: No Hx Influenza Vaccination: Yes Hx Pneumococcal Vaccination: No - Social History Hx Tobacco Use: No Hx Chewing Tobacco Use: No Hx Alcohol Use: Yes Hx Substance Use: No Hx Substance Use Treatment: No Hx Depression: No Hx Physical Abuse: No Hx Emotional Abuse: No Hx Suspected Abuse: No - Female History Hx Last Menstrual Period: 12/05/17 Patient : No Expected Date of Delivery:: 06/05/13 - Triage Comment ED Triage Comment: Diagnosed with renal stone and uti recently Family Medical History - Family History Mother Family History: Unknown Physical Exam - Physical Exam General Appearance: Alert, Obvious distress Ears, Nose, Throat: hearing grossly normal, normal ENT inspection Neck: full range of motion, normal inspection Respiratory: no respiratory distress, no accessory muscle use Cardiovascular/Chest: normal peripheral pulses, no murmur Gastrointestinal/Abdominal: normal bowel sounds, non tender, soft, no organomegaly, no pulsatile mass Back Exam: normal inspection, no vertebral tenderness, CVA tenderness (L) Extremity: normal range of motion, normal inspection Neurologic: alert, normal mood/affect Skin Exam: normal color, warm/dry Lymphatic: no adenopathy Progress - Progress Progress: 02/17/19 21:49 HCG NEG. CMP NEG (BUN AND CR NL). CBC HGB 10.5, DECR MCV AND MCHC. UA PROTEIN, BLOOD, RBC, LEUK EST. CT = NO OBSTRUCTING STONES. NO STONES NOR HYDROURETER OF L SIDE TO EXPLAIN HER PAIN. I SUSPECT HER PAIN IS FROM THE STENT. ABX FOR UTI. SEND FOR CX SINCE STILL UTI AFTER LEVAQUIN. INSTRUCTED PT TO CALL URO ABOUT SOONER STENT REMOVAL. FLOMAX FOR POSSIBLE URETERAL RELAXATION TO HELP WITH PAIN AND ULTRAM PRN. Departure - Departure Clinical Impression: Left flank pain, History of ureter stent, Microcytic hypochromic anemia, Microscopic hematuria UTI (urinary tract infection) Qualifiers: Urinary tract infection type: acute cystitis Hematuria presence: with hematuria Qualified Code(s): N30.01 - Acute cystitis with hematuria Disposition: Discharge to Home or Self Care Condition: Good Departure Forms: ED Discharge - Pt. Copy, Patient Portal Self Enrollment Instructions: DI for Urinary Tract Infection (UTI) Diet: resume usual diet Activity: increase activity as tolerated Referrals: Catalina Gottlieb POTATO PANCAKE FRIER [Primary Care Provider] - 1-2 Weeks Prescriptions: Tramadol HCl [Ultram] 50 mg PO Q6HR PRN #15 tab PRN Reason: Pain Nitrofurantoin Monohydrate Mac [Macrobid] 100 mg PO BID #14 cap Tamsulosin HCl [Flomax] 0.4 mg PO DAILY 10 Days #10 cap Home Medications: Ambulatory Orders Ketorolac Tromethamine [Toradol Tabs] 10 mg PO Q6HRS PRN #16 tab 01/24/19 Ondansetron HCl [Zofran] 4 mg PO Q4HR PRN #12 tab 01/24/19 Nitrofurantoin Monohydrate Mac [Macrobid] 100 mg PO BID #14 cap 02/17/19 Tamsulosin HCl [Flomax] 0.4 mg PO DAILY 10 Days #10 cap 02/17/19 Tramadol HCl [Ultram] 50 mg PO Q6HR PRN #15 tab 02/17/19 Additional Instructions: As discussed, please call your urologist tomorrow and inform him of your persistent left flank pain, which is the side where the stent is. The CT in the ER did not show a stone nor dilated ureter.
[2019-02-17 22:07] VITALS: BP 119/84; O2SAT 99
== END 2019-02-17 22:18 | disposition home or self-care (01) ==
LOC: ER 19:02
DX: N30.01 Acute cystitis with hematuria (principal); R10.9 Unspecified abdominal pain; D50.9 Iron deficiency anemia, unspecified; Z96.0 Presence of urogenital implants; Z87.442 Personal history of urinary calculi; Z87.440 Personal history of urinary (tract) infections; Z90.49 Acquired absence of other specified parts of digestive tract
CPT/HCPCS: 36415; 74176; 80053; 81001; 81025; 85025; 87086; J1170

== ENCOUNTER 2020-06-25 14:10 | Emergency (ER) | payer OTHER, SELFPAY ==
[2020-06-25] MEDS ORDERED: KETOROLAC TROMETHAMINE INJ 30 MG/ML VIAL IM ONE (14:43)
[2020-06-25 14:45] VITALS: TEMP 97.9
--- NOTE | 2020-06-25 15:20 | RAD ---
EXAM: X-RAY CHEST, 2 VIEWS HISTORY: left spine chest pain after a fall.. COMPARISON: Chest x-ray from 04/29/2018. TECHNIQUE: PA and lateral views of the chest. FINDINGS: Lungs: The lungs are clear. Pleural space: No pneumothorax or pleural effusion is present. Heart: The heart is normal in size. Bones: No acute bone abnormality. IMPRESSION: No acute cardiopulmonary finding. Electronically signed by: Mj Garcia MD 06/25/2020 3:18 PM [facility]
--- NOTE | 2020-06-25 15:21 | RAD ---
EXAM: X-RAY, Chest (1 View) HISTORY: fall with left hip pain. COMPARISON: None. TECHNIQUE: AP view of the chest. FINDINGS: Lungs: The lungs are clear. Normal joint spaces of both hips. Pleural space: No pneumothorax or pleural effusion is present. Heart: The heart is normal in size. Bones: No acute bone abnormality. IMPRESSION: No acute cardiopulmonary finding. Electronically signed by: Mj Garcia MD 06/25/2020 3:19 PM [facility]
--- NOTE | 2020-06-25 16:06 | ED.PDOC ---
History of Present Illness - General Chief Complaint: Trauma Stated Complaint: fall yesterday, LUQ abdominal pain Time Seen by Provider: 06/25/20 14:38 Exam Limitations: no limitations - History of Present Illness Initial Comments: Patient is a 30-year-old female who was running outside yesterday and slipped and fell on the ice and landed on her left side. Patient woke up this morning complaining of worsening left hip pain and left lower rib cage pain. The pain is sharp and stabbing in nature. It is worse with movement or palpation. It is of slightly improved with rest. It is nonradiating. It is constant. Occurred: yesterday Severity: moderate Pain Location: chest, lower extremity Method of Injury: fall Improving Factors: nothing Worsening Factors: movement Associated Symptoms (Fall): chest pain Allergies/Adverse Reactions: Allergies NO KNOWN ALLERGY Allergy (Verified 01/17/18 03:30) Home Medications: Ambulatory Orders Ketorolac Tromethamine [Toradol Tabs] 10 mg PO Q6HRS PRN #16 tab 01/24/19 Ondansetron HCl [Zofran] 4 mg PO Q4HR PRN #12 tab 01/24/19 Nitrofurantoin Monohydrate Mac [Macrobid] 100 mg PO BID #14 cap 02/17/19 Tamsulosin HCl [Flomax] 0.4 mg PO DAILY 10 Days #10 cap 02/17/19 Tramadol HCl [Ultram] 50 mg PO Q6HR PRN #15 tab 02/17/19 Review of Systems - Review of Systems Constitutional: States: no symptoms reported, see HPI. Denies: chills, fever, malaise, weakness EENTM: States: no symptoms reported. Denies: eye pain, blurred vision, double vision Respiratory: States: see HPI, short of breath - secondary to difficulty taking a deep breath. Denies: cough, wheezing Cardiology: States: see HPI, chest pain. Denies: palpitations, syncope Gastrointestinal/Abdominal: States: no symptoms reported. Denies: abdominal pain, diarrhea, nausea, vomiting Genitourinary: States: no symptoms reported. Denies: dysuria, frequency Musculoskeletal: States: see HPI, other - left chest wall and left hip/buttock. Denies: back pain, neck pain Skin: States: see HPI, change in color - bruising of left buttock (purple). Denies: rash Neurological: States: no symptoms reported. Denies: headache, tingling, tremors, weakness Endocrine: States: no symptoms reported. Denies: increased hunger, increased thirst, increased urine Hematologic/Lymphatic: States: no symptoms reported. Denies: blood clots, easy bleeding All other Systems: Reviewed and Negative Past Medical History (General) - Patient Medical History Hx Seizures: No Hx Stroke: No Hx Dementia: No Hx Asthma: No Hx of COPD: No Hx Cardiac Disorders: No Hx Congestive Heart Failure: No Hx Pacemaker: No Hx Hypertension: No Hx Thyroid Disease: No Hx Diabetes: No Hx Gastroesophageal Reflux: No Hx Renal Disease: No Hx Cancer: No Hx of HIV: No Hx Hepatitis C: No Hx MRSA: No Surgical History: cholecystectomy, other - Vaccination History Hx Tetanus, Diphtheria Vaccination: No Hx Influenza Vaccination: Yes Hx Pneumococcal Vaccination: No - Social History Hx Tobacco Use: No Hx Chewing Tobacco Use: No Hx Alcohol Use: Yes Hx Substance Use: No Hx Substance Use Treatment: No Hx Depression: No Hx Physical Abuse: No Hx Emotional Abuse: No Hx Suspected Abuse: No - Female History Hx Last Menstrual Period: 12/05/17 Patient : No Expected Date of Delivery:: 06/05/13 Family Medical History - Family History Mother Family History: Unknown Physical Exam - Physical Exam General Appearance: Alert, Anxious, Obvious distress, Well Developed, Well Gr oomed, Well Hydrated, Well Nourished Head Injury: no evidence of injury Eye Exam: bilateral normal ENT Exam: hearing grossly normal, no evidence of ENT injury, no dental injury Neck Exam: non-tender, full range of motion, normal alignment, normal inspection Cardiovascular/Respiratory: no M/R/G, normal peripheral pulses, no JVD, normal breath sounds, no respiratory distress, tachycardia, other - TTP of left axillary chest wall. No crepitus. No stepoffs. Gastrointestinal/Abdominal: normal bowel sounds, non tender, soft, no organomegaly, no pulsatile mass Back Exam: normal inspection, no CVA tenderness, no vertebral tenderness Extremity Exam: pelvis stable, bony-point tenderness - left hip, pain with movement - left hip Skin Exam: warm/dry, other - bruising of left buttock. - [place] Coma Score Best Eye Response ([place]): (4) open spontaneously Best Verbal Response ([place]): (5) oriented Best Motor Response ([place]): (6) obeys commands [place] Total: 15 Progress - Progress Progress: Differential diagnosis: Left hip fracture, rib fractures, rib contusions, buttock contusion among others 06/25/20 16:39 X-rays do not show any fractures or pneumothorax. Patient is improved after the Toradol. Patient is to alternate Tylenol Motrin every 4 hours for pain control. I have given patient instructions on RICE. Plan discharge home at this time. I discussed the plan of care with the patient she voices understanding and agreement. Emanuel Sheldon M.D. #[id number] - Results/Orders Results/Orders: EXAM: X-RAY, Chest (1 View) HISTORY: fall with left hip pain. COMPARISON: None. TECHNIQUE: AP view of the chest. FINDINGS: Lungs: The lungs are clear. Normal joint spaces of both hips. Pleural space: No pneumothorax or pleural ef fusion is present. Heart: The heart is normal in size. Bones: No acute bone abnormality. IMPRESSION: No acute cardiopulmonary finding. Electronically signed by: Mj Garcia MD 06/25/2020 3:19 PM [facility] EXAM: X-RAY CHEST, 2 VIEWS HISTORY: left spine chest pain after a fall.. COMPARISON: Chest x-ray from 04/29/2018. TECHNIQUE: PA and lateral views of the chest. FINDINGS: Lungs: The lungs are clear. Pleural space: No pneumothorax or pleural effusion is present. Heart: The heart is normal in size. Bones: No acute bone abnormality. IMPRESSION: No acute cardiopulmonary finding. Electronically signed by: Mj Garcia MD 06/25/2020 3:18 PM [facility] Vital Signs 06/25/20 14:26 Temperature 97.9 F Pulse Rate [ 100 H left brachial] Respiratory 22 Rate Blood Pressure 135/91 [right brachial ] O2 Sat by Pulse 95 Oximetry Departure - Departure Clinical Impression: Multiple contusions Fall Qualifiers: Encounter type: initial encounter Qualified Code(s): W19.XXXA - Unspecified fall, initial encounter Time of Disposition: 16:41 Disposition: Discharge to Home or Self Care Condition: Good Departure Forms: ED Discharge - Pt. Copy, Patient Portal Self Enrollment Instructions: DI for Trauma, Bruised Rib (DC), Contusion (DC) Diet: resume usual diet Activity: increase activity as tolerated Referrals: Renate Martinez NP [Primary Care Provider] - 1 Week Home Medications: Ambulatory Orders Ketorolac Tromethamine [Toradol Tabs] 10 mg PO Q6HRS PRN #16 tab 01/24/19 Ondansetron HCl [Zofran] 4 mg PO Q4HR PRN #12 tab 01/24/19 Nitrofurantoin Monohydrate Mac [Macrobid] 100 mg PO BID #14 cap 02/17/19 Tamsulosin HCl [Flomax] 0.4 mg PO DAILY 10 Days #10 cap 02/17/19 Tramadol HCl [Ultram] 50 mg PO Q6HR PRN #15 tab 02/17/19
[2020-06-25 16:53] VITALS: BP 145/79; O2SAT 98
== END 2020-06-25 16:45 | disposition home or self-care (01) ==
LOC: ER 14:10
DX: S30.0XXA Contusion of lower back and pelvis, initial encounter (principal); R10.12 Left upper quadrant pain; M25.552 Pain in left hip; R07.89 Other chest pain; R06.02 Shortness of breath; W00.0XXA Fall on same level due to ice and snow, initial encounter; Y93.02 Activity, running; Y92.9 Unspecified place or not applicable
CPT/HCPCS: 71046; 72170; J1885

== ENCOUNTER 2020-08-02 01:34 | Emergency (ER) | payer OTHER ==
[2020-08-02] MEDS ORDERED: ALUM & MAG HYDROX-SIMETHICONE 30 ML, LIDOCAINE VISCOUS 2% 15 ML PO ONE ×2 (01:52)
[2020-08-02 01:54] VITALS: TEMP 97.1; O2SAT 100
[2020-08-02] MEDS ORDERED: SODIUM CHLORIDE 0.9% (FLUSH) 10 ML SYG IV PRN (02:21)
--- NOTE | 2020-08-02 02:37 | RAD ---
EXAM: XR Chest, 1 View CLINICAL HISTORY: The patient is 30 years old and is Female; chest pain TECHNIQUE: Frontal view of the chest. COMPARISON: Chest radiograph June 25, 2020 FINDINGS: LUNGS: Unremarkable. No consolidation. PLEURAL SPACE: Unremarkable. No pneumothorax. HEART: Unremarkable. No cardiomegaly. MEDIASTINUM: Unremarkable. BONES/JOINTS: Unremarkable. IMPRESSION: No acute cardiopulmonary process. Electronically signed by: Sherri Braswell MD 08/02/2020 2:36 AM [facility]
[2020-08-02] MEDS ORDERED: ONDANSETRON INJ 4 MG/2 ML VIAL IV ONE (03:26)
[2020-08-02] MEDS ORDERED: MORPHINE SULFATE INJ 10 MG/ML VIAL IV ONE (03:27)
--- NOTE | 2020-08-02 03:30 | ED.PDOC ---
History of Present Illness - General Chief Complaint: Abdominal Pain Stated Complaint: Abdminal pain Time Seen by Provider: 08/02/20 02:19 Information Source: patient, RN notes reviewed, Vital Signs reviewed Exam Limitations: no limitations - History of Present Illness Initial Comments: Patient is a 30-year-old female who presents with complaints of acute onset of epigastric pain starting at midnight. The pain is burning in nature. It is stabbing in nature. It is severe in intensity. There is no radiation of the pain. Nothing makes it better or worse. The pain is constant.She has never had an episode of pain like this in the past. Patient is status post cholecystectomy years ago. Abdominal Pain Onset Location: epigastric Pain Radiation: no radiation Quality: severe, burning Timing/Duration: 1-3 hours Improving Factors: nothing Worsening Factors: nothing Associated Symptoms: denies symptoms Review of Systems - Review of Systems Constitutional: States: no symptoms reported, see HPI. Denies: chills, fever, malaise, weakness EENTM: States: no symptoms reported. Denies: eye pain, blurred vision, double vision Respiratory: States: no symptoms reported. Denies: cough, short of breath, stridor, wheezing Cardiology: States: no symptoms reported. Denies: chest pain, palpitations, syncope Gastrointestinal/Abdominal: States: see HPI, abdominal pain. Denies: diarrhea, nausea, vomiting Genitourinary: States: no symptoms reported. Denies: dysuria, frequency Musculoskeletal: States: no symptoms reported. Denies: back pain, joint pain, neck pain Skin: States: no symptoms reported. Denies: change in color, rash Neurological: States: no symptoms reported. Denies: headache, tingling, tremors, weakness Endocrine: States: no symptoms reported. Denies: increased hunger, increased thirst, increased urine Hematologic/Lymphatic: States: no symptoms reported. Denies: blood clots, easy bleeding All other Systems: Reviewed and Negative Past Medical History (General) - Patient Medical History Hx Seizures: No Hx Stroke: No Hx Dementia: No Hx Asthma: No Hx of COPD: No Hx Cardiac Disorders: No Hx Congestive Heart Failure: No Hx Pacemaker: No Hx Hypertension: No Hx Thyroid Disease: No Hx Diabetes: No Hx Gastroesophageal Reflux: No Hx Renal Disease: No Hx Cancer: No Hx of HIV: No Hx Hepatitis C: No Hx MRSA: No Surgical History: cholecystectomy - Vaccination History Hx Tetanus, Diphtheria Vaccination: No Hx Influenza Vaccination: No Hx Pneumococcal Vaccination: No - Social History Hx Tobacco Use: No Hx Chewing Tobacco Use: No Hx Alcohol Use: Yes Hx Substance Use: No Hx Substance Use Treatment: No Hx Depression: No Feels Threatened In Home Enviroment: No Feels Threatened In a Relationship: No Hx Physical Abuse: No Hx Emotional Abuse: No Hx Suspected Abuse: No - Female History Patient is a Female of Child Bearing Age (10 -59 yrs old): Yes Hx Last Menstrual Period: 12/05/17 Patient : No Expected Date of Delivery:: 06/05/13 - Triage Comment ED Triage Comment: The patient walked from the ER waiting room into ER room 3 and was plaed in bed with rails up. She was alert and oriented times 4 and complained of upper epigastric pain that radiated to her right shoulder. She did have noted nausea but denied throwing up. She denied chest pain and shortness of breath and had no other noted complaints at the time of assessment. She had taken a Tylenol 3 at 0000 with no change in pain level. Family Medical History - Family History Mother Family History: Unknown Physical Exam - Physical Exam General Appearance: Alert, Anxious, Obvious distress, Well Developed, Well Groomed, Well Hydrated, Well Nourished Eyes, Ears, Nose, Throat Exam: PERRL/EOMI, normal ENT inspection, pharynx normal Neck: non-tender, full range of motion, supple Respiratory: chest non-tender, lungs clear, normal breath sounds, no respiratory distress, no accessory muscle use Cardiovascular/Chest: normal peripheral pulses, regular rate, rhythm, no edema, no JVD, no murmur Peripheral Pulses: No deficit Gastrointestinal/Abdominal: normal bowel sounds, soft, tenderness - Epigastric Back Exam: normal inspection, no CVA tenderness, no vertebral tenderness Extremity: normal range of motion, non-tender, normal inspection 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 No comparison EKG available at this time. 08/02/20 02:21 Sodium Chloride 0.9% (Flush) [Saline Flush Syringe] 3 ml IV PRN PRN 08/02/20 02:22 IV Care:Saline Lock per Protoc QSHIFT Telemetry ONCE EKG Assessment ONCE Pulse Oximetry Assessment DAILY 08/02/20 02:30 EKG STAT 08/02/20 09:00 Pulse Ox Daily Laboratory Results - last 24 hr 08/02/20 08/02/20 08/02/20 02:40 02:40 02:40 WBC 7.3 RBC 4.40 Hgb 10.7 L Hct 33.3 L MCV 75.6 L MCH 24.2 L MCHC 32.1 L RDW 14.0 Plt Count 185 MPV 9.5 Absolute Neuts (auto) 4.80 Absolute Lymphs (auto) 1.80 Absolute Monos (auto) 0.40 Absolute Eos (auto) 0.20 Absolute Basos (auto) 0.10 Neutrophils % 66.1 Lymphocytes % 24.4 Monocytes % 6.1 Eosinophils % 2.3 Basophils % 1.1 Normal RBC Morphology Stain quality accept PT 10.6 INR 1.07 PTT (SP) 23.9 Sodium 140 Potassium 3.6 Chloride 107 Carbon Dioxide 27 Anion Gap 9.6 L BUN 18 Creatinine 0.57 L BUN/Creatinine Ratio 31.6 H Random Glucose 103 Serum Osmolality 281.6 Calcium 8.3 L Magnesium 1.7 L Creatine Kinase 69 CK-MB (CK-2) 0.8 CK-MB (CK-2) % Not Reportable Troponin I < 0.02 B-Natriuretic Peptide 48.6 Vital Signs 08/02/20 08/02/20 08/02/20 01:41 02:00 03:00 Temperature 97.1 F L Pulse Rate [ 60 55 L 64 Pulse Ox] Respiratory 18 16 16 Rate Blood Pressure 130/64 116/68 121/74 [Left Arm] O2 Sat by Pulse 100 100 100 Oximetry Departure - Departure Clinical Impression: Epigastric pain Abdominal pain Qualifiers: Abdominal location: epigastric Qualified Code(s): R10.13 - Epigastric pain Time of Disposition: 03:38 Disposition: Discharge to Home or Self Care Condition: Good Departure Forms: ED Discharge - Pt. Copy, Patient Portal Self Enrollment Instructions: DI for Abdominal Pain-Adult, Severe Abdominal Pain, Adult (DC) Diet: bland diet Activity: increase activity as tolerated Referrals: Renate Martinez NP [Primary Care Provider] - 1-2 Days Home Medications: Ambulatory Orders Ketorolac Tromethamine [Toradol Tabs] 10 mg PO Q6HRS PRN #16 tab 01/24/19 Ondansetron HCl [Zofran] 4 mg PO Q4HR PRN #12 tab 01/24/19 Nitrofurantoin Monohydrate Mac [Macrobid] 100 mg PO BID #14 cap 02/17/19 Tamsulosin HCl [Flomax] 0.4 mg PO DAILY 10 Days #10 cap 02/17/19 Tramadol HCl [Ultram] 50 mg PO Q6HR PRN #15 tab 02/17/19
[2020-08-02 03:45] VITALS: BP 119/70
== END 2020-08-02 03:45 | disposition home or self-care (01) ==
LOC: ER 01:34
DX: R10.13 Epigastric pain (principal); R00.1 Bradycardia, unspecified; Z90.49 Acquired absence of other specified parts of digestive tract
CPT/HCPCS: 71045; 80048; 82550; 82553; 83880; 84484; 85025; 85610; 85730; 93005; J2270; J2405